=== PATIENT | female | born 1960 | race Caucasian/White ===

== ENCOUNTER → 2017-08-23 10:05 | Outpatient (CLI) | payer MEDICAID, SELFPAY ==
[2017-08-23 10:20] LABS: Lipase 988 U/L (73-393)
== END ==
PROVIDERS: Family Provider Internal Medicine; PCP Internal Medicine; Visit Provider Internal Medicine Hematology & Oncology
DX: C34.90 Malignant neoplasm of unspecified part of unspecified bronchus or lung (principal)
CPT/HCPCS: 83690

== ENCOUNTER → 2017-09-09 16:09 | Outpatient (CLI) | payer MEDICAID, SELFPAY ==
[2017-09-09 16:26] LABS: Lipase 300 U/L (73-393)
== END ==
PROVIDERS: Visit Provider Internal Medicine Hematology & Oncology
DX: C34.90 Malignant neoplasm of unspecified part of unspecified bronchus or lung (principal)
CPT/HCPCS: 83690

== ENCOUNTER → 2017-09-13 10:42 | Outpatient (CLI) | payer MEDICAID, SELFPAY ==
[2017-09-13 11:03] LABS: Lipase 591 U/L (73-393)
== END ==
PROVIDERS: Family Provider Internal Medicine; Visit Provider Internal Medicine Hematology & Oncology
DX: C34.90 Malignant neoplasm of unspecified part of unspecified bronchus or lung (principal)
CPT/HCPCS: 83690

== ENCOUNTER → 2017-10-04 10:37 | Outpatient (CLI) | payer MEDICAID, SELFPAY ==
[2017-10-04 11:06] LABS: Lipase 183 U/L (73-393)
== END ==
PROVIDERS: Family Provider Internal Medicine; PCP Internal Medicine; Visit Provider Internal Medicine Hematology & Oncology
DX: C34.90 Malignant neoplasm of unspecified part of unspecified bronchus or lung (principal)
CPT/HCPCS: 83690

== ENCOUNTER → 2017-10-14 07:53 | Outpatient (CLI) | payer MEDICAID, SELFPAY ==
[2017-10-14 08:36] VITALS: BMI 29.5
[2017-10-14 09:48] VITALS: BP 139/87; PULSE 97; RESP 18; TEMP 36.9; O2SAT 97
[2017-10-14] MEDS: Acetaminophen 325 MG Tablet 650 MG PO (09:51)
[2017-10-14 10:15] VITALS: BP 126/74; PULSE 84; RESP 16; TEMP 36.7; O2SAT 100
[2017-10-14 11:15] VITALS: BP 124/77; PULSE 78; TEMP 36.6
[2017-10-14 11:50] VITALS: BP 120/67; PULSE 78; RESP 16; TEMP 36.6; O2SAT 98
== END ==
PROVIDERS: Family Provider Internal Medicine; PCP Internal Medicine; Visit Provider Internal Medicine Hematology & Oncology
DX: Z51.89 Encounter for other specified aftercare (principal); C56.9 Malignant neoplasm of unspecified ovary; D64.81 Anemia due to antineoplastic chemotherapy
CPT/HCPCS: 36430; 86850; 86900; 86920; 86922; J7040; P9016; A4216

== ENCOUNTER → 2017-10-28 09:40 | Outpatient (CLI) | payer MEDICAID, SELFPAY ==
[2017-10-28 10:00] LABS: Lipase 140 U/L (73-393)
== END ==
PROVIDERS: Family Provider Internal Medicine; PCP Internal Medicine; Visit Provider Internal Medicine Hematology & Oncology
DX: C34.90 Malignant neoplasm of unspecified part of unspecified bronchus or lung (principal)
CPT/HCPCS: 83690

== ENCOUNTER 2017-12-23 13:26 | Inpatient (IN) | payer MEDICAID, SELFPAY ==
[2017-12-23] VITALS (7 sets, daily range): BP systolic 103–117; BP diastolic 65–76; PULSE 84–116; RESP 16–26; TEMP 36.9–37.4; O2SAT 95–99; BMI 28.9; BMI 27.7
--- NOTE | 2017-12-23 13:47 | CT_ITS ---
STUDY: CTA CHEST REASON FOR EXAM: Female, 57 years old. Trauma, lung CA with metastases. RADIATION DOSAGE (If Supplied By Facility): CTDIvol = ( 15.45 ) mGy, DLP = ( 589.54 ) mGycm TECHNIQUE: The examination was performed with the intravenous administration of 75CC ml of Isovue 370 contrast material. Post-processing of the angiographic images was performed, with multiplanar reformation and 3D reconstruction. Individualized dose optimization techniques were used for this CT. COMPARISON: 03/11/2017. FINDINGS: The heart is normal. There is a small pericardial effusion noted anteriorly and to the right. The aorta is normal in caliber, with no aneurysm or dissection. Moderate to marked mediastinal adenopathy appears stable to mildly decreased. Subcarinal and right hilar mass measuring approximately 4 x 4 cm shows no significant change. There is postobstructive atelectasis in the right middle lobe. Underlying postobstructive pneumonia is not excluded. Pulmonary arterial opacification is suboptimal for evaluation of PE. However, emboli are demonstrated in the 3rd-4th order arteries in the lower lobes bilaterally. Limited emboli are noted in 3-4th order arteries in the right middle and left upper lobes. Findings are new compared to the prior study. There is no pleural effusion. Innumerable low-attenuation lesions are noted in the liver, consistent with diffuse metastases. There is significant interval increase compared to the prior study. The right adrenal gland is enlarged, partially imaged, and suspicious for metastasis. Comparison to the prior study is limited due to partial imaging on today's examination. Small left adrenal nodules are nonspecific. There is no osseous abnormality. No evidence of destructive bone changes. CT/CTA Chest W/WO Contrast IMPRESSION: 1. Moderately extensive pulmonary emboli bilaterally. 2. Right hilar and mediastinal mass without significant change. 3. Mild interval decrease in mediastinal adenopathy. 4. Diffuse hepatic metastatic disease. 5. Right middle lobe postobstructive atelectasis. Postobstructive pneumonia is less likely but not excluded. 6. Right adrenal mass, possible metastasis. N.B. : The above information has been verbally conveyed by Lizett Mcneill MD to Alejandro Austin MD, AA, on 12/23/2017 17:05:12 (ET). Electronically Signed: Lizett Mcneill MD at 17:01 EDT Tel , Service support ,
--- NOTE | 2017-12-23 13:47 | CT_ITS ---
STUDY: CT BRAIN WITHOUT CONTRAST REASON FOR EXAM: Female, 57 years old. Trauma. History of metastatic lung cancer. RADIATION DOSAGE (If Supplied By Facility): CTDIvol = ( 44.99 ) mGy, DLP = ( 779.24 ) mGycm TECHNIQUE: Transaxial CT imaging of the brain was performed without administration of intravenous contrast material. Individualized dose optimization techniques were used for this CT. COMPARISON: None. FINDINGS: Normal soft tissue structures. Normal calvarium. Normal size ventricles and extra-axial spaces for the patient's age. Multiple areas of white matter edema suggestive of a metastasis are seen. An area of edema is seen in the right posterior parietal occipital lobe as well as in the right occipital lobe and left temporal parietal lobes. Decreased attenuation is also seen in the frontal lobes bilaterally adjacent to the frontal horns. Normal basal ganglia and thalami. Normal brainstem. Normal cerebellum. There is no intracranial hemorrhage. There are no findings of an acute ischemic infarction. Normal visualized paranasal sinuses. CT/Brain/Head without Contrast IMPRESSION: Findings including the bilateral cerebral metastasis with white matter edema and minimal mass effect. There is no evidence of midline shift. Electronically Signed: Amol Sparrow MD at 15:54 EDT Tel [phone], Service support ,
--- NOTE | 2017-12-23 13:47 | EKG12_ITS ---
Test Reason : CHEST OTHER Blood Pressure : / mmHG Vent. Rate : 111 BPM Atrial Rate : 111 BPM P-R Int : 130 ms QRS Dur : 086 ms QT Int : 312 ms P-R-T Axes : 066 063 045 degrees QTc Int : 424 ms Sinus tachycardia Low voltage QRS (LIMB LEADS) Confirmed by LETTY CURTIS, DEISI ([id number]), story editor MONIKA SAGE ([id number]) on 12/25/2017 1:28:27 PM Referred By: JAIRO Confirmed By:DEISI SAENZ MD
--- NOTE | 2017-12-23 13:52 | ED.VISSUMM ---
- ER Visit Summary Date of Service: 12/23/17 Chief Complaint: Chest pain History of Present Illness: The patient is a 57 F with a history of lung cancer status post chemotherapy. She was supposed to have an MRI of her brain and CAT scan of her chest today as an outpatient. The patient noticed that she seemed unbalanced. She fell earlier today and hit her head. She had multiple falls over the past month. The patient also reports chest pain, cough, sputum, and shortness of breath. No history of DVT or PE. She denies blood thinner use. Denies fevers. Denies GI symptoms or rash. Physical Examination: Afebrile and vital signs unremarkable except for heart rate of 115 and respiratory rate of 25. The patient is 98% on room air. She has an occasional dry cough but is otherwise sitting comfortably. Alert and oriented. Head and neck atraumatic. Heart tachycardic but regular. Lungs show wheezing in all hooper. Abdomen soft and nontender. Skin slightly pale but otherwise normal. Cranial nerves grossly intact. Good strength and sensation. Normal speech and coordination. Test Results: EKG, CT brain and chest, labs, urine, and cultures pending. Emergency Department Course and Treatment: Patient treated with fluids and a DuoNeb while awaiting results. Treatment Plan: [] Disposition: [] Impression: [] This note was generated with [employer] dictation software. It may contain incorrect words, spelling, and punctuation that were not noted in review of the chart prior to signing ED Disposition - Plan for ED Patient: Chief Complaint: Chest Other Referrals: Yanni Martin MD [Primary Care Provider] -
[2017-12-23] MEDS: Ipratropium/Albuterol Sulfate 3 ML AMPUL.NEB INHALATION ×2 (14:07→20:58)
[2017-12-23] MEDS: 0.9% Normal Saline 1,000 ML 1000 ML IV (14:32)
[2017-12-23 14:37] LABS: Absolute Lymphocyte Count 1.44 X10^3/ul (0.83-4.51); Absolute Neutrophil Count 18.5 X10^3/uL (2.0-7.7); Basophil# 0.02 X10^3/uL; Basophil% 0.1 % (0-1); Eosinophil# 0.01 X10^3/uL; Hemoglobin 10.5 g/dl (12.0-15.0); Lymphocyte # 1.44 X10^3/ul (4.0); Lymphocyte % 6.3 % (19-41); Mean Corp Hgb Conc 32.8 g/gl (32-36); Mean Corpuscular Hgb 32.9 pg (27.0-32.0); Mean Corpuscular Volume 100.3 fL (81-99); Mean Platelet Vol. 9.9 fl (6.2-12.0); Monocyte# 2.76 X10^3/uL; Monocyte% 12.1 % (0-10); Neutrophil # 18.52 X10^3/uL (2.7-7.7); Neutrophil % 81.2 % (47-70); Platelet Count 181 K/mm3 (150-450); RBC Distribution Width CV 14.9 % (11.6-14.6); RBC Distribution Width SD 53.5 fl (35.1-43.9); Red Blood Count 3.19 M/mm3 (4.2-5.4); White Blood Count 22.8 K/mm3 (4.4-11.0)
[2017-12-23 14:41] LABS: POSITIVE DIFFERENTIAL YES
[2017-12-23 14:42] LABS: Differential Indicated SCAN CRITERIA MET; POSITIVE COUNT NO; POSITIVE MORPHOLOGY NO
[2017-12-23 14:47] LABS: International Normalized Ratio 1.4; Prothrombin Time (Protime)PT. 16.7 SECONDS (11.7-14.9)
[2017-12-23 14:48] LABS: Partial Thromboplast Time 31.4 Seconds (24.1-36.2)
[2017-12-23 15:05] LABS: ALB/GLOB Ratio 0.6 RATIO (0.9-2.4); AST(SGOT) 162 U/L (15-37); Alanine Aminotransfer ALT/SGPT 69 U/L (13-56); Albumin, Serum 2.9 g/dL (3.2-5.0); Alkaline Phosphatase 356 U/L (45-117); Anion Gap 13 (5-15); BUN 10 mg/dL (7-18); BUN/Creat Ratio 10.5 RATIO (10-20); Calcium,Total 8.7 mg/dL (8.5-10.1); Chloride 100 mmol/L (98-107); Creatinine, Serum 0.95 mg/dL (0.55-1.02); EST Glomerular Filtration Rate 65 mL/min (>60); Est Glom Filt Rate - Afr Amer 78 mL/min (>60); Estimated Creatinine Clearance 57.78 ml/min; Globulin 4.5 g/dL (2.2-4.2); Glucose 92 mg/dL (74-106); Lipase 1637 U/L (73-393); Potassium 3.8 mmol/L (3.5-5.1); Protein, Total 7.4 g/dL (6.4-8.2); Sodium Level 134 mmol/L (136-145)
[2017-12-23 15:09] LABS: Platelet Estimate A (ADEQ); Red Cell Morphology NORM C+C NORMAL (NORM C&C)
--- NOTE | 2017-12-23 17:53 | HP.PCM_ITS ---
<Guanako Plunkett - Last Filed: 12/23/17 17:45> Problem List (1) Pulmonary embolism Status: Acute (2) Pneumonia Status: Acute (3) Sepsis Status: Acute (4) Iron deficiency anemia Status: Chronic (5) Metastatic cancer Status: Chronic (6) Small cell lung cancer Status: Chronic (7) Tobacco use Status: Chronic History of Present Illness Date of Admission: 12/23/17 Chief Complaint: fall The patient is a 57 year old F with a hx of SCLC with mets to the brain, pancreas, liver, adrenal gland, pt of Dr. Presley on chemo last dose 3 weeks ago, who presents to the ER with c/o fall and hitting her head. She states she has been very weak with difficulty walking, with prior falls at home. Today she states she both became LH and then tripped on a rug leading to a fall. She struck her right forehead. She also notes persistent cough with clear sputum production and BL chest wall chest pain. She struck her right knee and c/o pain there as well. She denies SOB but is on O2 - feels she needs this at home. She has no fever or chills. She has no abdominal pain, nausea, vomiting, or intolerance of PO. In the ER CT brain is negative for new changes, however CTA chest shows PE's and possible post obstructive pna. She was given vanc, aztreonam, and subq lovenox. She continues to smoke and requests nicotine gum. [] Past Medical History Past Medical History (Chronic Problems): Chronic Problems Iron deficiency anemia (Chronic) Small cell lung cancer (Chronic) Tobacco use (Chronic) Obesity (BMI 30.0-34.9) (Chronic) Metastatic cancer (Chronic) Allergies cephalexin Allergy (Verified 12/23/17 13:27) Unknown lidocaine Allergy (Verified 12/23/17 13:27) Rash Penicillins Allergy (Verified 12/23/17 13:27) Rash Home Medications: Ambulatory Orders Medication Instructions Recorded Ferrous Sulfate [Iron] 325 mg PO BID 10/14/17 Metoclopramide HCl 20 mg PO Q6H PRN 10/14/17 Omeprazole 20 mg PO DAILY 10/14/17 Potassium Chloride [K-Tab ER] 20 meq PO DAILY 10/14/17 Albuterol Sulfate [Ventolin Hfa] 2 puff INHALATION Q4H PRN PRN 12/23/17 Megestrol Acetate [Megace Udc] 400 mg PO DAILY 12/23/17 Oxycodone [Oxyir] 10 - 20 mg PO Q6H PRN PRN 12/23/17 Surgical History: noncontributory, - - ?1. Psychiatric History: No pertinent psych hx [employer] History: No pertinent [employer] history Lives: Alone Smoking Status: Current every day smoker Alcohol: None Drugs: None - *Family History Maternal History Items: - - Maternal family history of hypertension, heart disease, of lung disease with history of heavy tobacco use. Paternal History Items: - - Father with diabetes mellitus type 2 history. Sibling History Items: - - Patient notes sister with history of lung cancer with heavy tobacco use and another sister with history of lung cancer as well as brain tumors with history of tobacco use. Review of Systems Constitutional: Reports: Weakness, Fatigue. Denies: Chills, Fever, Weight Change HEENT: Denies: Head Aches, Sinus Congestion, Sinus Drainage Cardiovascular: Reports: Chest Pain, Light Headedness. Denies: Edema, Palpitations, Syncope Respiratory: Reports: Cough, Pleuritic Pain, Sputum production. Denies: Shortness of breath at rest, Shortness of breath upon exertion Gastrointestinal: Denies: Abdominal Pain, Nausea, Vomiting Genitourinary: Denies: Dysuria Musculoskeletal: Denies: Joint Pain, Joint Tenderness Skin: Denies: Rash, Wounds Neurological: Denies: Numbness, Tingling, Focal weakness Psychiatric: Denies: Anxiety, Depression, Homicidal Ideations, Suicidal Ideations Hematologic/ Lymphatic: Denies: Easy Bruising, Easy Bleeding VTE Information - Inpt Only VTE Present on Admission: Yes VTE Mechan Device Prophylaxis: None VTE Pharm Prophylaxis ordered?: Yes Patient Problems: Active and Suspected Problems Pulmonary embolism (Acute) Pneumonia (Acute) Sepsis (Acute) Chest pain (Acute) - Physical Exam General: Alert, Oriented x3, Cooperative HEENT: Atraumatic, PERRLA, EOMI, Normocephalic Neck: Supple, No JVD, Negative Carotid Bruits Lungs: Diminished Cardiovascular: Regular rate, No murmurs Abdomen: Bowel Sounds Present, Soft, Non Tender Extremities: No edema, Capillary Refill Less than 3 Seconds Skin: No rashes, No breakdown Musculoskeletal: No Tenderness to Palpation of Joints or Extremities Neurological: Cranial nerves II-XII grossly intact Psych/Mental Status: Normal Affect, Appropriate Vital Signs Temp Pulse Resp BP Pulse Ox 99.3 F H 114 H 20 H 113/76 97 12/23/17 13:27 12/23/17 14:13 12/23/17 14:13 12/23/17 13:27 12/23/17 13:27 Oxygen Flow Rate (L/min) 2 Oxygen Delivery Method Nasal Cannula Weight: 168 lb 6.931 oz Body Mass Index (BMI) 28.9 Laboratory Tests Past 24 Hrs 12/23/17 12/23/17 12/23/17 14:23 14:23 14:23 WBC 22.8 H RBC 3.19 L Hgb 10.5 L Hct 32.0 L MCV 100.3 H MCH 32.9 H MCHC 32.8 RDW 14.9 H RDW Differential 53.5 H Plt Count 181 MPV 9.9 Immature Gran % (Auto) 0.300 Neut % (Auto) 81.2 H Lymph % (Auto) 6.[address] % (Auto) 12.1 H Eos % (Auto) 0.0 Baso % (Auto) 0.1 Absolute Neuts (auto) 18.5 H Absolute Lymphs (auto) 1.44 Total Counted Not Reportable Differential Comment Diff Path Review May foll Platelet Estimate A RBC Morphology NORM C+C PT 16.7 H INR 1.4 APTT 31.4 Sodium 134 L Potassium 3.8 Chloride 100 Carbon Dioxide 21.0 Anion Gap 13 BUN 10 Creatinine 0.95 Estim Creat Clear Calc 57.78 Est GFR (MDRD) Af Amer 78 Est GFR (MDRD) Non-Af 65 BUN/Creatinine Ratio 10.5 Glucose 92 Calcium 8.7 Total Bilirubin 1.00 AST 162 H ALT 69 H Alkaline Phosphatase 356 H Troponin I < 0.015 Total Protein 7.4 Albumin 2.9 L Globulin 4.5 H Albumin/Globulin Ratio 0.6 L Lipase 1637 H Assessment/Plan All Active Problems Pulmonary embolism (Acute) Pneumonia (Acute) Sepsis (Acute) Chest pain (Acute) Acute pancreatitis (Acute) Ureteral calculus (Acute) Hydronephrosis due to obstruction of ureter (Acute) 1. Acute PE's - 2/2 metastatic cancer, also on megace (hold), and smoker. Continue therapeutic lovenox. Oncology consulted. Obtain echo. Monitor on tele. Trop neg. EKG sinus tachy. 2. Presumed acute sepsis 2/2 postobstructive pna - respiratory symptoms are mild and possibly all 2/2 PE, however CTA does show post obstructive atelectasis vs pna and she does have productive cough, leukocytosis, tachypnea, and tachycardia. Will continue Aztronam and Vanco given her immunocompromised state, postobstructive nature of CT findings, and allergies to abx. Will add usual pna therapy/workup including antigens, cultures, mucinex, PEP/IS. 3. 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 Last chemo 3 weeks ago. Plans to continue next week. Liver enzymes are elavated. T bili normal. 4. Chronic Iron def anemia - continue Iron. 5. Hx pancreatitis - elevated lipase however no abdominal / GI complaints - I do not feel this is acute pancreatitis and will allow her to have regular diet for now. 6. Fall with worsening debility - CT brain neg for acute change. Will obtain XR right knee for c/o pain from fall. Needs PTOT, possible placement. She has been falling more at home. Mets to brain. 7. Nicotine abuse - gum per patient request DVT ppx: therapeutic lovenox for PE DC planning: PTOT, may need placed. This patient was seen by Guanako Plunkett PA-C under the supervision of Doctor Ruddy. <Chanell Fox - Last Filed: 12/23/17 20:45> Problem List (1) Chest pain Status: Acute History of Present Illness The patient is a 57 year old F [] Past Medical History Allergies cephalexin Allergy (Verified 12/23/17 13:27) Unknown lidocaine Allergy (Verified 12/23/17 13:27) Rash Penicillins Allergy (Verified 12/23/17 13:27) Rash - Physical Exam Vital Signs Temp Pulse Resp BP Pulse Ox 99.3 F H 114 H 20 H 113/76 97 12/23/17 13:27 12/23/17 14:13 12/23/17 14:13 12/23/17 13:27 12/23/17 13:27 Oxygen Flow Rate (L/min) 2 Oxygen Delivery Method Nasal Cannula Weight: 168 lb 6.931 oz Body Mass Index (BMI) 28.9 Laboratory Tests Past 24 Hrs 12/23/17 12/23/17 12/23/17 14:23 14:23 14:23 WBC 22.8 H RBC 3.19 L Hgb 10.5 L Hct 32.0 L MCV 100.3 H MCH 32.9 H MCHC 32.8 RDW 14.9 H RDW Differential 53.5 H Plt Count 181 MPV 9.9 Immature Gran % (Auto) 0.300 Neut % (Auto) 81.2 H Lymph % (Auto) 6.[address] [place] % (Auto) 12.1 H Eos % (Auto) 0.0 Baso % (Auto) 0.1 Absolute Neuts (auto) 18.5 H Absolute Lymphs (auto) 1.44 Total Counted Not Reportable Differential Comment Diff Path Review May foll Platelet Estimate A RBC Morphology NORM C+C PT 16.7 H INR 1.4 APTT 31.4 Sodium 134 L Potassium 3.8 Chloride 100 Carbon Dioxide 21.0 Anion Gap 13 BUN 10 Creatinine 0.95 Estim Creat Clear Calc 57.78 Est GFR (MDRD) Af Amer 78 Est GFR (MDRD) Non-Af 65 BUN/Creatinine Ratio 10.5 Glucose 92 Lactic Acid Calcium 8.7 Total Bilirubin 1.00 AST 162 H ALT 69 H Alkaline Phosphatase 356 H Troponin I < 0.015 Total Protein 7.4 Albumin 2.9 L Globulin 4.5 H Albumin/Globulin Ratio 0.6 L Lipase 1637 H 12/23/17 14:25 WBC RBC Hgb Hct MCV MCH MCHC RDW RDW Differential Plt Count MPV Immature Gran % (Auto) Neut % (Auto) Lymph % (Auto) [place] % (Auto) Eos % (Auto) Baso % (Auto) Absolute Neuts (auto) Absolute Lymphs (auto) Total Counted Differential Comment Diff Path Review Platelet Estimate RBC Morphology PT INR APTT Sodium Potassium Chloride Carbon Dioxide Anion Gap BUN Creatinine Estim Creat Clear Calc Est GFR (MDRD) Af Amer Est GFR (MDRD) Non-Af BUN/Creatinine Ratio Glucose Lactic Acid 2.1 H Calcium Total Bilirubin AST ALT Alkaline Phosphatase Troponin I Total Protein Albumin Globulin Albumin/Globulin Ratio Lipase Assessment/Plan Patient seen by Guanako Plunkett PA-C under my supervision Patient seen and examined by me. Patient is a 57-year-old female with small cell lung cancer diagnosed in March of this year and is status post palliative cranial radiation and chemotherapy. She was admitted with a complaint of a fall after she fell earlier today and hit her head. She has had a series of multiple falls. She also complained of chest pain and a cough productive of clear sputum as well as shortness of breath. She was due to have an MRI of her brain and CT of her chest today as outpatient but this was not done on account of her falls. She therefore came into the ED where she was found to be tachycardic and tachypneic. Labs were significant for white cell count of 22.8 and hemoglobin of 10.5 and urinalysis was negative. CT of the brain showed metastatic brain disease with minimal mass-effect, no midline shift and CT of the chest showed bilateral pulmonary embolism involving the bilateral lower lobes, right middle lobe and left upper lobe. She is been admitted to be managed for bilateral PE likely provoked by malignancy. She is also being managed for sepsis source possibly due to postobstructive pneumonia. o/e: Vital Signs Height 5 ft 4 in Weight: 168 lb 6.931 oz Weight in Pounds 168.4 lbs Pulse Ox 97 Temperature 99.3 F Pulse Rate 114 Respiratory Rate 20 Blood Pressure 113/76 General: Alert, Oriented x3, Cooperative HEENT: Atraumatic, PERRLA, EOMI, Normocephalic Neck: Supple, No JVD, Negative Carotid Bruits Lungs: clear to auscultation Cardiovascular: tachycardic, regular rhythm, No murmurs Abdomen: Bowel Sounds Present, Soft, Non Tender Extremities: No edema, Capillary Refill Less than 3 Seconds Skin: No rashes, No breakdown Musculoskeletal: No Tenderness to Palpation of Joints or Extremities Neurological: Cranial nerves II-XII grossly intact Psych/Mental Status: Normal Affect, Appropriate; though she does have brief episodes of confusion Assessment and plan She has been started on therapeutic Lovenox for acute PE. Will continue. Oncology consult placed. Will admit to PCU with telemetry. Patient is tachycardic and tachypneic. Symptoms can be explained by have bilateral PE. However, CT angiogram also showed possible postobstructive pneumonia. In light of her malignancy and immunosuppressed state, she does he is at high risk of infection. She meets SIRS criteria for infection-3/4 (tachypnea, tachycardia and leucocytosis). Was started on IV vancomycin and IV aztreonam; will continue. Blood and urine cultures drawn. Rest of admission as per Dimitrios ARIZMENDI's note. Code status: Patient and her 2 sisters were counseled extensively about different types of CODE STATUS. The counseled about differences between full code, DNR CCA and DNR CC. Patient elects to be full code. Total [id number] time 16 minutes. Code Visit Inpatient E&M: 65068 Init Hosp L3 Procedures: 12127 Advncd Care Plan 30 Min
[2017-12-23] MEDS: Enoxaparin 80 MG/0.8 ML Syringe SC (18:13)
[2017-12-23 18:30] LABS: Lactic Acid 2.1 mmol/L (0.4-2.0)
--- NOTE | 2017-12-23 18:55 | RAD_ITS ---
STUDY: X-RAY - RIGHT KNEE REASON FOR EXAM: Female, 57 years old. Status post fall. TECHNIQUE: view(s) of the knee. COMPARISON: None. FINDINGS: There is no fracture or dislocation. There is no joint effusion. There is moderate narrowing of the lateral compartment and mild lateral spurring consistent with osteoarthrosis. Medial compartment is unremarkable. There is mild irregularity of the anterior femoral articular surface suggesting impaction injury, age indeterminate. RAD/Knee 1 or 2 Views IMPRESSION: 1. Irregularity of the anterior femoral articular surface, possible impaction injury, age indeterminate. 2. Moderate osteoarthrosis of the lateral compartment. Electronically Signed: Lizett Mcneill MD at 22:09 EDT Tel , Service support ,
[2017-12-23] MEDS: 0.9% Normal Saline 1,000 ML 100 ML IV (19:16)
--- NOTE | 2017-12-23 19:30 | PCM.RX.CS ---
Consult Pharmacy has been consulted to manage selected antiobiotic: Vancomycin Type of Consult: New start Suspected Infection: Pneumonia Labs: Sodium 134 mmol/L (136-145) L 12/23/17 14:23 Potassium 3.8 mmol/L (3.5-5.1) 12/23/17 14:23 Chloride 100 mmol/L (98-107) 12/23/17 14:23 Carbon Dioxide 21.0 mmol/L (21.0-32.0) 12/23/17 14:23 Anion Gap 13 (5-15) 12/23/17 14:23 BUN 10 mg/dL (7-18) 12/23/17 14:23 Creatinine 0.95 mg/dL (0.55-1.02) 12/23/17 14:23 Est GFR (MDRD) Af Amer 78 mL/min (>60) 12/23/17 14:23 Est GFR (MDRD) Non-Af 65 mL/min (>60) 12/23/17 14:23 BUN/Creatinine Ratio 10.5 RATIO (10-20) 12/23/17 14:23 Glucose 92 mg/dL (74-106) 12/23/17 14:23 Weight used for dosin lb 8.821 oz Estimated Creatinine Clearance: 57.8 Goal Trough: 15-20 mcg/mL - loading dose of 1250mg given in ED. Pharmacy calculated dose 750mg q12h Pharmacy Plan for Drug Dosing: Pharmacy Service will continue to monitor and adjust dosing as required. Vancomycin 1250mg given in ED. Pharmacy calculated dose 750mg q12h Trough will be obtained before 12/25 8am dose
[2017-12-23] MEDS: guaiFENesin 1,200 MG Tablet 1200 MG PO (21:46)
[2017-12-23] MEDS: 0.9% NaCl Peripheral Flush Adult/Peds IV (21:46)
[2017-12-23 21:59] LABS: Reflex Lactate? Y
[2017-12-23 23:04] LABS: Lactic Acid 2.7 mmol/L (0.4-2.0)
[2017-12-24] VITALS (14 sets, daily range): BP systolic 106–116; BP diastolic 62–74; PULSE 85–108; RESP 16–20; TEMP 36.7–37.3; O2SAT 96–99
[2017-12-24] MEDS: Metoclopramide 10 MG Tablet 20 MG PO (00:29)
[2017-12-24] MEDS: Acetaminophen 325 MG Tablet 650 MG PO (00:39)
[2017-12-24] MEDS: 0.9% Normal Saline 1,000 ML 100 ML IV ×3 (04:20→23:54)
--- NOTE | 2017-12-24 05:55 | ECHOD_ITS ---
Reason For Study: EMBOLI Procedure This was a 2D Doppler, Color Flow transthoracic echocardiogram. The study was technically difficult. PT was uncooperative and argumentative throughout exam; however, agreed to do the test. Exam performed portable in patient room. Left Ventricle Normal size and thickness. The estimated ejection fraction is 65 %. Stage 1 diastolic dysfunction. No regional wall motion abnormalities noted. Right Ventricle Normal size and thickness. Normal systolic function. Atria Normal left atrium. Normal right atrium. Normal atrial septum. Bubble contrast study negative for right to left interatrial shunt. Mitral Valve The mitral valve is structurally normal. No prolapse or stenosis seen. Tricuspid Valve Normal tricuspid valve. Trivial tricuspid valve insufficiency. Right ventricular systolic pressure estimated to be 37 mmHg. Mild pulmonary hypertension. Aortic Valve Normal aortic valve. Trisinus/trileaflet aortic valve. Pulmonic Valve The pulmonic valve is not well visualized. Great Vessels Normal aortic root. Normal arch. Normal inferior vena cava. Inferior vena cava collapse with sniff. Pericardium/Pleural No pericardial effusion. Medication Performed a rapid injection of agitated mix of 9 cc saline and 1cc air to assess for atrial septal defect. MMode/2D Measurements & Calculations LVIDd: 4.0 cm IVSd: 1.0 cm Ao root diam: 3.1 cm LVIDs: 2.6 cm LVPWd: 1.0 cm LA dimension: 3.7 cm RVDd: 3.0 cm FS: 36.8 % LAV(MOD-bp): 33.9 ml LA A4 area: 11.1 cm2 LAV(MOD-bp) Indexed: 19.0 ml/m2 LAV(MOD-sp2): 35.5 ml LAV(MOD-sp4): 26.8 ml Doppler Measurements & Calculations MV E max bhupinder: 94.8 cm/sec Lat Peak E' Bhupinder: 10.3 cm/sec Med Peak E' Bhupinder: 7.9 cm/sec MV A max bhupinder: 77.6 cm/sec E/E' lat: 9.2 E/E' med: 12.0 MV E/A: 1.2 Ao V2 max: 156.4 cm/sec LV V1 max: 117.3 cm/sec PA V2 max: 87.5 cm/sec Ao max P.8 mmHg LV V1 max P.5 mmHg TR max bhupinder: 281.1 cm/sec TR max P.6 mmHg Interpretation Summary The estimated ejection fraction is 65 %. Stage 1 diastolic dysfunction. Bubble contrast study negative for right to left interatrial shunt. Trivial tricuspid valve insufficiency. Right ventricular systolic pressure estimated to be 37 mmHg. Mild pulmonary hypertension. There is no comparison study available. Ordering Physician: Guanako Plunkett Referring Physician: Yanni Martin Performed By: Khadijah Caraballo RDCS, RVT
[2017-12-24] MEDS: Enoxaparin 80 MG/0.8 ML Syringe SC ×2 (06:30→17:02)
[2017-12-24] MEDS: Ipratropium/Albuterol Sulfate 3 ML AMPUL.NEB INHALATION ×3 (07:03→19:04)
[2017-12-24 07:07] LABS: Absolute Lymphocyte Count 1.51 X10^3/ul (0.83-4.51); Absolute Neutrophil Count 12.5 X10^3/uL (2.0-7.7); Basophil# 0.02 X10^3/uL; Basophil% 0.1 % (0-1); Eosinophil# 0.01 X10^3/uL; Eosinophils% 0.1 % (0-5); Hematocrit 28.2 % (37-47); Lymphocyte # 1.51 X10^3/ul (4.0); Lymphocyte % 9.5 % (19-41); Mean Corp Hgb Conc 31.9 g/gl (32-36); Mean Corpuscular Hgb 31.7 pg (27.0-32.0); Mean Corpuscular Volume 99.3 fL (81-99); Mean Platelet Vol. 10.3 fl (6.2-12.0); Monocyte# 1.84 X10^3/uL; Monocyte% 11.6 % (0-10); Neutrophil # 12.46 X10^3/uL (2.7-7.7); Neutrophil % 78.6 % (47-70); Platelet Count 145 K/mm3 (150-450); RBC Distribution Width CV 15.3 % (11.6-14.6); RBC Distribution Width SD 56.2 fl (35.1-43.9); Red Blood Count 2.84 M/mm3 (4.2-5.4); White Blood Count 15.9 K/mm3 (4.4-11.0)
[2017-12-24 07:08] LABS: Differential Indicated SCAN CRITERIA MET; POSITIVE COUNT NO; POSITIVE DIFFERENTIAL YES; POSITIVE MORPHOLOGY NO
[2017-12-24 07:26] LABS: ALB/GLOB Ratio 0.6 RATIO (0.9-2.4); AST(SGOT) 144 U/L (15-37); Alanine Aminotransfer ALT/SGPT 63 U/L (13-56); Albumin, Serum 2.4 g/dL (3.2-5.0); Alkaline Phosphatase 304 U/L (45-117); Anion Gap 13 (5-15); BUN 9 mg/dL (7-18); BUN/Creat Ratio 12.7 RATIO (10-20); Calcium,Total 7.9 mg/dL (8.5-10.1); Chloride 108 mmol/L (98-107); Creatinine, Serum 0.71 mg/dL (0.55-1.02); EST Glomerular Filtration Rate 91 mL/min (>60); Est Glom Filt Rate - Afr Amer 110 mL/min (>60); Estimated Creatinine Clearance 77.31 ml/min; Globulin 3.7 g/dL (2.2-4.2); Glucose 96 mg/dL (74-106); Potassium 3.3 mmol/L (3.5-5.1); Protein, Total 6.1 g/dL (6.4-8.2); Sodium Level 140 mmol/L (136-145)
--- NOTE | 2017-12-24 07:38 | CON.PCM_ITS ---
Problem List (1) Pneumonia Status: Acute Qualifiers: Pneumonia type: due to unspecified organism Laterality: unspecified laterality Lung location: unspecified part of lung Qualified Code(s): J18.9 - Pneumonia, unspecified organism (2) Sepsis Status: Acute (3) Small cell lung cancer Status: Chronic (4) Pulmonary embolism Status: Acute Qualifiers: Pulmonary embolism type: other Chronicity: acute Acute cor pulmonale pres ence: without acute cor pulmonale Qualified Code(s): I26.99 - Other pulmonary embolism without acute cor pulmonale (5) Ataxia Status: Acute Comment: Cerebellar metastases - Consult Date of Consult: 12/24/[address] Fox regarding patient with extensive small cell lung cancer with brain and liver metastasis presented with sepsis and bilateral pulmonary embolism. Final recommendation will be communicated to Dr. Fox and also by electronic medical record. - Reason for Consult Sepsis Ataxia Bilateral pulmonary embolism Extensive small cell lung cancer with liver and brain metastasis History of Present Illness Date of Admission: 12/23/17 Chief Complaint: fall The patient is a 57 year old F with a hx of SCLC with mets to the brain, pancreas, liver, adrenal gland. Patient is receiving palliative chemotherapy with Dr. Presley. Her last dose was 3 weeks ago. She presented to the ER with c/o fall and hitting her head x 1 month. She was diagnosed with brain metastasis in June 2017 completed whole brain radiation therapy. Prior treatment including carboplatin and etoposide through May 2017. Patient was on Topotecan until October 2017 for progression of disease. She started Taxol carboplatin in November 2017. Now completed 2 cycles of chemotherapy. She states she has been very weak with difficulty walking, with prior falls at home. Today she states she both became LH and then tripped on a rug leading to a fall. She struck her right forehead. She also notes persistent cough with clear sputum production and BL chest wall chest pain. She struck her right knee and c/o pain there as well. She denies SOB but is on O2 - feels she needs this at home. She has no fever or chills. She has no abdominal pain, nausea, vomiting, or intolerance of PO. Not been eating much for the last 4 days. In the ER CT brain is negative for new changes except for cerebellar metastasis with no shift or enhancement with edema. Her CTA chest shows PE's and possible post obstructive pneumonia process. She also has progression of disease in her liver. She was given vanc, aztreonam, and subq lovenox. Patient denies chest pain or shortness of breath this morning, she still have a nonproductive cough. She has no fever, but she is weak and has difficulty with balance. Patient denied nausea, vomiting, or headaches. Past Medical History Past Medical History (Chronic Problems): Chronic Problems Iron deficiency anemia (Chronic) Small cell lung cancer (Chronic) Tobacco use (Chronic) Obesity (BMI 30.0-34.9) (Chronic) Metastatic cancer (Chronic) Allergies cephalexin Allergy (Verified 12/23/17 13:27) Unknown lidocaine Allergy (Verified 12/23/17 13:27) Rash Penicillins Allergy (Verified 12/23/17 13:27) Rash Home Medications: Ambulatory Orders Medication Instructions Recorded Ferrous Sulfate [Iron] 325 mg PO BID 10/14/17 Metoclopramide HCl 20 mg PO Q6H PRN 10/14/17 Omeprazole 20 mg PO DAILY 10/14/17 Potassium Chloride [K-Tab ER] 20 meq PO DAILY 10/14/17 Albuterol Sulfate [Ventolin Hfa] 2 puff INHALATION Q4H PRN PRN 12/23/17 Megestrol Acetate [Megace Udc] 400 mg PO DAILY 12/23/17 Oxycodone [Oxyir] 10 - 20 mg PO Q6H PRN PRN 12/23/17 Surgical History: noncontributory, - - ?1. 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 Paternal History Items: - - Father with diabetes mellitus type 2 history. Sibling History Items: - - Patient notes sister with history of lung cancer with heavy tobacco use and another sister with history of lung cancer as well as brain tumors with history of tobacco use. Review of Systems Constitutional: Reports: + Weakness, Fatigue. Denies: Chills, Fever, Weight Change HEENT: Denies: Head Aches, Sinus Congestion, Sinus Drainage Cardiovascular: Reports: Chest Pain, Light Headedness. Denies: Edema, Palpitations, Syncope Respiratory: Reports: Cough, Pleuritic Pain, Sputum production. Denies: Shortness of breath at rest, Shortness of breath upon exertion Gastrointestinal: Denies: Abdominal Pain, Nausea, Vomiting Genitourinary: Denies: Dysuria Musculoskeletal: Denies: Joint Pain, Joint Tenderness Skin: Denies: Rash, Wounds Neurological: Denies: Numbness, Tingling, + generalized weakness + ataxia Psychiatric: Denies: Anxiety, Depression, Homicidal Ideations, Suicidal Ideations Hematologic/ Lymphatic: Denies: Easy Bruising, Easy Bleeding VTE Information - Inpt Only VTE Present on Admission: Yes VTE Mechan Device Prophylaxis: None VTE Pharm Prophylaxis ordered?: Yes Patient Problems: Active and Suspected Problems Pulmonary embolism (Acute) Pneumonia (Acute) Sepsis (Acute) Vital Signs - 24 hr Temp Pulse Pulse Pulse Pulse Resp BP 12/24/17 07:03 91 16 12/24/17 03:47 98.2 F 95 18 111/74 12/24/17 03:00 95 12/23/17 23:00 107 H 12/23/17 21:47 98.9 F 105 H 16 114/73 12/23/17 21:00 84 18 12/23/17 19:33 110 H 12/23/17 18:45 98.4 F 109 H 109 H 114 H 116 H 18 108/65 12/23/17 14:13 114 H 20 H 12/23/17 13:27 99.3 F H 114 H 26 H 113/76 BP BP BP Pulse Ox 12/24/17 07:03 97 12/24/17 03:47 97 12/24/17 03:00 12/23/17 23:00 12/23/17 21:47 99 12/23/17 21:00 95 12/23/17 19:33 12/23/17 18:45 108/65 117/73 103/72 96 12/23/17 14:13 12/23/17 13:27 97 - Physical Exam General: Alert, Oriented x3, Cooperative HEENT: Atraumatic, PERRLA, EOMI, Normocephalic Neck: Supple, No JVD, Negative Carotid Bruits Lungs: Diminished, no wheezing Cardiovascular: Regular rate, No murmurs Abdomen: Bowel Sounds Present, Soft, Non Tender Extremities: No edema, Capillary Refill Less than 3 Seconds Skin: No rashes, No breakdown Musculoskeletal: No Tenderness to Palpation of Joints or Extremities Neurological: Cranial nerves II-XII grossly intact; + ataxia Psych/Mental Status: Normal Affect, Appropriate Oxygen Flow Rate (L/min) 2 Oxygen Delivery Method Nasal Cannula Weight: 168 lb 6.931 oz Body Mass Index (BMI) 28.9 Labs (Last 48 Hours) 12/23/17 12/23/17 12/23/17 14:23 14:23 14:23 WBC 22.8 H RBC 3.19 L Hgb 10.5 L Hct 32.0 L MCV 100.3 H MCH 32.9 H MCHC 32.8 RDW 14.9 H RDW Differential 53.5 H Plt Count 181 MPV 9.9 Immature Gran % (Auto) 0.300 Neut % (Auto) 81.2 H Lymph % (Auto) 6.3 L [place] % (Auto) 12.1 H Eos % (Auto) 0.0 Baso % (Auto) 0.1 Absolute Neuts (auto) 18.5 H Absolute Lymphs (auto) 1.44 Total Counted Not Reportable Differential Comment Diff Path Review May foll Platelet Estimate A RBC Morphology NORM C+C PT 16.7 H INR 1.4 APTT 31.4 Sodium 134 L Potassium 3.8 Chloride 100 Carbon Dioxide 21.0 Anion Gap 13 BUN 10 Creatinine 0.95 Estim Creat Clear Calc 57.78 Est GFR (MDRD) Af Amer 78 Est GFR (MDRD) Non-Af 65 BUN/Creatinine Ratio 10.5 Glucose 92 Lactic Acid Calcium 8.7 Total Bilirubin 1.00 AST 162 H ALT 69 H Alkaline Phosphatase 356 H Troponin I < 0.015 Total Protein 7.4 Albumin 2.9 L Globulin 4.5 H Albumin/Globulin Ratio 0.6 L Lipase 1637 H 12/23/17 12/23/17 12/24/17 14:25 22:22 06:30 WBC 15.9 H RBC 2.84 L Hgb 9.0 L Hct 28.2 L MCV 99.3 H MCH 31.7 MCHC 31.9 L RDW 15.3 H RDW Differential 56.2 H Plt Count 145 L MPV 10.3 Immature Gran % (Auto) 0.100 Neut % (Auto) 78.6 H Lymph % (Auto) 9.5 L [place] % (Auto) 11.6 H Eos % (Auto) 0.1 Baso % (Auto) 0.1 Absolute Neuts (auto) 12.5 H Absolute Lymphs (auto) 1.51 Total Counted Not Reportable Differential Comment Diff Path Review May foll Platelet Estimate RBC Morphology PT INR APTT Sodium Potassium Chloride Carbon Dioxide Anion Gap BUN Creatinine Estim Creat Clear Calc Est GFR (MDRD) Af Amer Est GFR (MDRD) Non-Af BUN/Creatinine Ratio Glucose Lactic Acid 2.1 H 2.7 H Calcium Total Bilirubin AST ALT Alkaline Phosphatase Troponin I Total Protein Albumin Globulin Albumin/Globulin Ratio Lipase 12/24/17 06:30 WBC RBC Hgb Hct MCV MCH MCHC RDW RDW Differential Plt Count MPV Immature Gran % (Auto) Neut % (Auto) Lymph % (Auto) [place] % (Auto) Eos % (Auto) Baso % (Auto) Absolute Neuts (auto) Absolute Lymphs (auto) Total Counted Differential Comment Diff Path Review Platelet Estimate RBC Morphology PT INR APTT Sodium 140 Potassium 3.3 L Chloride 108 H Carbon Dioxide 19.0 L Anion Gap 13 BUN 9 Creatinine 0.71 Estim Creat Clear Calc 77.31 Est GFR (MDRD) Af Amer 110 Est GFR (MDRD) Non-Af 91 BUN/Creatinine Ratio 12.7 Glucose 96 Lactic Acid Calcium 7.9 L Total Bilirubin 0.80 AST 144 H ALT 63 H Alkaline Phosphatase 304 H Troponin I Total Protein 6.1 L Albumin 2.4 L Globulin 3.7 Albumin/Globulin Ratio 0.6 L Lipase Assessment/Plan All Active Problems 57-year-old lady with metastatic small cell lung cancer refractory to chemotherapy treatment. She now present with sepsis/postobstructive pneumonia with bilateral pulmonary embolism as well as liver metastases, pancreatitis and ataxia possible secondary to progression disease versus generalized weakness. 1) pneumonia/sepsis; agree with broad-spectrum antibiotic pending blood and sputum cultures -Pneumococcal antigens and legionnaire antigen urine test -Sputum culture 2) acute pulmonary embolus secondary to metastatic lung cancer -Continue Lovenox injection 1mg/kg sq 12-hour 3) chronic anemia secondary to iron deficiency and anemia of chronic disease -Continue observation since patient is asymptomatic. 4) history of pancreatitis, elevated lipase but patient asymptomatic -Manage symptomatically. 5) frequent fall and worsening debility-due to cancer progression, dehydration, malnutrition, paraneoplastic vs progression of cerebellar metastasis -PT / OT consult 6) progression of metastatic small cell lung cancer with brain and liver metastasis on palliative chemotherapy -Discontinue chemotherapy -Family conference to discuss hospice referral (possibly tomorrow). cc: Dr. Chanell Fox, Dr. Rajeev Presley, Dr. Yanni Martin
[2017-12-24] MEDS: Ferrous Sulfate 325 MG Tablet PO ×2 (09:09→16:55)
[2017-12-24] MEDS: Pantoprazole Sodium 20 MG Tablet PO (09:10)
[2017-12-24] MEDS: guaiFENesin 1,200 MG Tablet 1200 MG PO ×2 (09:10→21:26)
--- NOTE | 2017-12-24 13:17 | CASEMGMT ---
Patient does not have insurance. Patient [employer] Services met with patient and indicated patient is over for Medicaid and HCAP. SW met with patient, introduced self and role at [facility]. SW told patient Medicaid for nursing homes has a higher income guideline and she would likely qualify. She said she would talk to her sister melodie and they can fill out the Medicaid application. ALANNA told her SW will check back with her tomorrow. If patient decides she needs to go to a prison she would have to complete a Medicaid application for prison. ALANNA would then have to fax this to [employer] [facility] [employer] [facility] and obtain a pending number. ALANNA would have to find a facility that will accept patient on pending Medicaid. Once the pending number is received and SW has an accepting facility SW will have to submit paperwork to [facility] for a level of care. Tamie GARIBAY MSW
[2017-12-24 13:31] LABS: M R Staph aureus DNA By PCR Negative (Negative); Probe Check PASS; Specimen Processing Control PASS
--- NOTE | 2017-12-24 14:22 | PN_ITS ---
<Guanako Plunkett - Last Filed: 12/24/17 14:17> Patient Problems: Active and Suspected Problems Pulmonary embolism (Acute) Pneumonia (Acute) Sepsis (Acute) Chest pain (Acute) Ataxia (Acute) Cerebellar metastases Subjective: Overall improved. No shortness of breath, chest pain, pleurisy, fevers or chills. Continues to have intermittent productive cough. - Physical Exam General: Alert, Oriented x3, Cooperative HEENT: Atraumatic, PERRLA, EOMI, Normocephalic Neck: Supple, No JVD, Negative Carotid Bruits Lungs: Clear to auscultation, Normal air movement Cardiovascular: Regular rate, No murmurs Abdomen: Bowel Sounds Present, Soft, Non Tender Extremities: No edema, Capillary Refill Less than 3 Seconds Skin: No rashes, No breakdown Musculoskeletal: No Tenderness to Palpation of Joints or Extremities Neurological: Cranial nerves II-XII grossly intact Psych/Mental Status: Normal Affect, Appropriate, Alert and oriented to time, place, person, mood and affect Vital Signs Temp Pulse Resp BP Pulse Ox 99.2 F H 89 20 H 106/66 98 12/24/17 09:14 12/24/17 12:45 12/24/17 12:45 12/24/17 09:14 12/24/17 09:14 Oxygen Flow Rate (L/min) 2 Oxygen Delivery Method Nasal Cannula Weight: 161 lb 7.994 oz Body Mass Index (BMI) 27.7 Intake and Output for Last 24 Hours 12/22/17 12/23/17 12/24/17 23:59 23:59 23:59 Intake Total 3714 / 3714 Balance 3714 / 3714 Laboratory Tests Past 24 Hrs 12/23/17 12/23/17 12/23/17 14:23 14:23 14:23 WBC 22.8 H RBC 3.19 L Hgb 10.5 L Hct 32.0 L MCV 100.3 H MCH 32.9 H MCHC 32.8 RDW 14.9 H RDW Differential 53.5 H Plt Count 181 MPV 9.9 Immature Gran % (Auto) 0.300 Neut % (Auto) 81.2 H Lymph % (Auto) 6.3 L Emanuel % (Auto) 12.1 H Eos % (Auto) 0.0 Baso % (Auto) 0.1 Absolute Neuts (auto) 18.5 H Absolute Lymphs (auto) 1.44 Total Counted Not Reportable Differential Comment Diff Path Review May foll Platelet Estimate A RBC Morphology NORM C+C PT 16.7 H INR 1.4 APTT 31.4 Sodium 134 L Potassium 3.8 Chloride 100 Carbon Dioxide 21.0 Anion Gap 13 BUN 10 Creatinine 0.95 Estim Creat Clear Calc 57.78 Est GFR (MDRD) Af Amer 78 Est GFR (MDRD) Non-Af 65 BUN/Creatinine Ratio 10.5 Glucose 92 Lactic Acid Calcium 8.7 Total Bilirubin 1.00 AST 162 H ALT 69 H Alkaline Phosphatase 356 H Troponin I < 0.015 Total Protein 7.4 Albumin 2.9 L Globulin 4.5 H Albumin/Globulin Ratio 0.6 L Lipase 1637 H MRSA (PCR) 12/23/17 12/23/17 12/24/17 14:25 22:22 06:30 WBC 15.9 H RBC 2.84 L Hgb 9.0 L Hct 28.2 L MCV 99.3 H MCH 31.7 MCHC 31.9 L RDW 15.3 H RDW Differential 56.2 H Plt Count 145 L MPV 10.3 Immature Gran % (Auto) 0.100 Neut % (Auto) 78.6 H Lymph % (Auto) 9.5 L Emanuel % (Auto) 11.6 H Eos % (Auto) 0.1 Baso % (Auto) 0.1 Absolute Neuts (auto) 12.5 H Absolute Lymphs (auto) 1.51 Total Counted Not Reportable Differential Comment Diff Path Review May foll Platelet Estimate RBC Morphology PT INR APTT Sodium Potassium Chloride Carbon Dioxide Anion Gap BUN Creatinine Estim Creat Clear Calc Est GFR (MDRD) Af Amer Est GFR (MDRD) Non-Af BUN/Creatinine Ratio Glucose Lactic Acid 2.1 H 2.7 H Calcium Total Bilirubin AST ALT Alkaline Phosphatase Troponin I Total Protein Albumin Globulin Albumin/Globulin Ratio Lipase MRSA (PCR) 12/24/17 12/24/17 06:30 12:00 WBC RBC Hgb Hct MCV MCH MCHC RDW RDW Differential Plt Count MPV Immature Gran % (Auto) Neut % (Auto) Lymph % (Auto) Emanuel % (Auto) Eos % (Auto) Baso % (Auto) Absolute Neuts (auto) Absolute Lymphs (auto) Total Counted Differential Comment Diff Path Review Platelet Estimate RBC Morphology PT INR APTT Sodium 140 Potassium 3.3 L Chloride 108 H Carbon Dioxide 19.0 L Anion Gap 13 BUN 9 Creatinine 0.71 Estim Creat Clear Calc 77.31 Est GFR (MDRD) Af Amer 110 Est GFR (MDRD) Non-Af 91 BUN/Creatinine Ratio 12.7 Glucose 96 Lactic Acid Calcium 7.9 L Total Bilirubin 0.80 AST 144 H ALT 63 H Alkaline Phosphatase 304 H Troponin I Total Protein 6.1 L Albumin 2.4 L Globulin 3.7 Albumin/Globulin Ratio 0.6 L Lipase MRSA (PCR) Negative Medical Necessity - Tobacco Use Smoking Status: Current every day smoker Tobacco Use: Cigarettes Assessment/Plan All Active Problems Pulmonary embolism (Acute) Pneumonia (Acute) Sepsis (Acute) Chest pain (Acute) Ataxia (Acute) Acute pancreatitis (Acute) Ureteral calculus (Acute) Hydronephrosis due to obstruction of ureter (Acute) 1. Acute PE's - 2/2 metastatic cancer, also on megace (hold), and smoker. Continue therapeutic lovenox. Oncology consulted. echo Echo demonstrates EF of 65% with stage I diastolic dysfunction, RVSP of 37 mmHg, mild pulmonary hypertension. Trop neg. 2. Presumed acute severe sepsis 2/2 postobstructive pna - respiratory symptoms are mild and possibly all 2/2 PE, however CTA does show post obstructive atelectasis vs pna. Severe sepsis criteria met on admission with leukocytosis, tachypnea, tachycardia, lactic acidosis. Vanc and aztreonam stopped and changed to cefepime. MRSA screen is negative. Leukocytosis is improved, she remains afebrile. Blood cultures, sputum cultures, urine antigens pending. 3. 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 Last chemo 3 weeks ago. Plans to continue next week. Liver enzymes are elavated. T bili normal. Oncology to discuss hospice with patient. 4. Chronic Iron def anemia - continue Iron. 5. Hx pancreatitis - elevated lipase however no abdominal / GI complaints - I do not feel this is acute pancreatitis and will allow her to have regular diet for now. 6. Fall with worsening debility - CT brain neg for acute change. X-ray of the knee does not show a fracture. 7. Nicotine abuse - gum per patient request. She continues to smoke at least one pack a day. DVT ppx: therapeutic lovenox for PE DC planning: Patient is unsafe to return home as she lives by herself and has been falling more frequently with metastases to the brain, and has been hitting her head lately. She desires to go home, however there will be hospice discussion occurring tomorrow. Further planning will depend on the outcome of that discussion. This patient was seen by Guanako Plunkett PA-C under the supervision of Doctor Leon. <Mainor Quintero - Last Filed: 12/24/17 17:09> Subjective: The patient was admitted yesterday night. Mild tachycardia, heart rate in 100s. Pulse ox 96% on 2 L of oxygen. Patient has history of metastatic small cell lung cancer with metastases to brain, pancreas, liver and adrenal gland. Patient on palliative chemotherapy by Dr. Presley, last chemo about 3 weeks ago. Patient was admitted with generalized weakness, difficulty walking and recurrent fall at home. Patient fell down and states hitting her head. She has persistent cough clear sputum and bilateral pleuritic chest wall pain. CTA chest was consistent with PE, postobstructive pneumonia. Was started on IV vancomycin and aztreonam and Lovenox 1 mg/kg body weight subcu. IV antibiotic was changed to cefepime and vancomycin. Patient does not have significant allergy with cephalosporins. - Physical Exam General: Alert, Oriented x3, Cooperative HEENT: Atraumatic, PERRLA, EOMI, Normocephalic Neck: Supple, No JVD, Negative Carotid Bruits Lungs: Diminished, Rhonchi, - - Tonic cough Cardiovascular: Regular rate, Regular Rhythm, Normal S1, Normal S2, No murmurs Abdomen: Bowel Sounds Present, Soft, Non Tender, Non-Distended Extremities: No edema, Capillary Refill Less than 3 Seconds Skin: No rashes, No breakdown Musculoskeletal: No Tenderness to Palpation of Joints or Extremities, Arthritic Changes, Muscle Wasting Neurological: Cranial nerves II-XII grossly intact, Neuro grossly intact, Unsteady Gait Psych/Mental Status: Normal Affect, Appropriate Vital Signs Temp Pulse Resp BP Pulse Ox 98.6 F 108 H 18 106/70 96 12/24/17 15:16 12/24/17 15:16 12/24/17 15:16 12/24/17 15:16 12/24/17 15:16 Oxygen Flow Rate (L/min) 2 Oxygen Delivery Method Room Air Weight: 161 lb 7.994 oz Body Mass Index (BMI) 27.7 Intake and Output for Last 24 Hours 12/22/17 12/23/17 12/24/17 23:59 23:59 23:59 Intake Total 3714 / 3714 Balance 3714 / 3714 Laboratory Tests Past 24 Hrs 12/23/17 12/23/17 12/24/17 14:25 22:22 06:30 WBC 15.9 H RBC 2.84 L Hgb 9.0 L Hct 28.2 L MCV 99.3 H MCH 31.7 MCHC 31.9 L RDW 15.3 H RDW Differential 56.2 H Plt Count 145 L MPV 10.3 Immature Gran % (Auto) 0.100 Neut % (Auto) 78.6 H Lymph % (Auto) 9.5 L Emanuel % (Auto) 11.6 H Eos % (Auto) 0.1 Baso % (Auto) 0.1 Absolute Neuts (auto) 12.5 H Absolute Lymphs (auto) 1.51 Total Counted Not Reportable Diff Path Review May foll Sodium Potassium Chloride Carbon Dioxide Anion Gap BUN Creatinine Estim Creat Clear Calc Est GFR (MDRD) Af Amer Est GFR (MDRD) Non-Af BUN/Creatinine Ratio Glucose Lactic Acid 2.1 H 2.7 H Calcium Total Bilirubin AST ALT Alkaline Phosphatase Total Protein Albumin Globulin Albumin/Globulin Ratio MRSA (PCR) 12/24/17 12/24/17 06:30 12:00 WBC RBC Hgb Hct MCV MCH MCHC RDW RDW Differential Plt Count MPV Immature Gran % (Auto) Neut % (Auto) Lymph % (Auto) Emanuel % (Auto) Eos % (Auto) Baso % (Auto) Absolute Neuts (auto) Absolute Lymphs (auto) Total Counted Diff Path Review Sodium 140 Potassium 3.3 L Chloride 108 H Carbon Dioxide 19.0 L Anion Gap 13 BUN 9 Creatinine 0.71 Estim Creat Clear Calc 77.31 Est GFR (MDRD) Af Amer 110 Est GFR (MDRD) Non-Af 91 BUN/Creatinine Ratio 12.7 Glucose 96 Lactic Acid Calcium 7.9 L Total Bilirubin 0.80 AST 144 H ALT 63 H Alkaline Phosphatase 304 H Total Protein 6.1 L Albumin 2.4 L Globulin 3.7 Albumin/Globulin Ratio 0.6 L MRSA (PCR) Negative Assessment/Plan This patient was seen in conjunction with Guanako KAUFMAN. I have independently interviewed and examined the patient and reviewed pertinent history, examination findings, laboratory and plan of management. I have reviewed the note and agree with the documented findings with the few additional points. In brief, patient is a 57-year-old female with history of 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 Presley, last chemo about 3 weeks ago is being admitted for generalized weakness, difficulty walking and recurrent fall at home. Patient fell down and states hit her head. She has persistent cough clear sputum and bilateral pleuritic chest wall pain and further assessment and evaluation was consistent with moderately extensive bilateral acute PE secondary to metastatic cancer, right middle lobe postobstructive pneumonia/atelectasis and right hilar, mediastinal mass, adrenal metastasis and diffuse liver metastasis. CT images reviewed. The patient was started on IV vancomycin and aztreonam and Lovenox 1 mg/kg body weight subcut. IV antibiotic was changed to cefepime and vancomycin. Patient does not have significant allergy with cephalosporins. I have discussed my assessment with Guanako KAUFMAN and orders have been reviewed. Code Visit Inpatient E&M: 42465 Subs Hosp L3
[2017-12-24] MEDS: oxyCODONE 5 MG Tablet PO (21:25)
[2017-12-25] VITALS (15 sets, daily range): BP systolic 112–122; BP diastolic 76–90; PULSE 89–112; RESP 16–20; TEMP 36.5–36.8; O2SAT 95–99
[2017-12-25] MEDS: Enoxaparin 80 MG/0.8 ML Syringe SC ×2 (06:28→16:59)
[2017-12-25 06:33] LABS: Absolute Lymphocyte Count 1.27 X10^3/ul (0.83-4.51); Basophil# 0.01 X10^3/uL; Basophil% 0.1 % (0-1); Eosinophil# 0.05 X10^3/uL; Eosinophils% 0.5 % (0-5); Hematocrit 26.3 % (37-47); Hemoglobin 8.1 g/dl (12.0-15.0); Lymphocyte # 1.27 X10^3/ul (4.0); Lymphocyte % 12.3 % (19-41); Mean Corp Hgb Conc 30.8 g/gl (32-36); Mean Platelet Vol. 10.5 fl (6.2-12.0); Monocyte# 1.03 X10^3/uL; Neutrophil # 7.96 X10^3/uL (2.7-7.7); Neutrophil % 76.8 % (47-70); Platelet Count 160 K/mm3 (150-450); RBC Distribution Width CV 15.3 % (11.6-14.6); RBC Distribution Width SD 56.3 fl (35.1-43.9); Red Blood Count 2.53 M/mm3 (4.2-5.4); White Blood Count 10.4 K/mm3 (4.4-11.0)
[2017-12-25 06:50] LABS: Bacteria 0 SEEN /hpf (None Seen); Mucous, Urine 0 SEEN /hpf (<or=2+); Red Blood Cells-Urine 0 SEEN /hpf (0-5)
[2017-12-25 06:51] LABS: Color, Urine Yellow (Yellow); Glucose, Dipstick Normal (Normal); Ketone-Dipstick 5 mg/dl (Negative); Leukocyte Esterase-Dipstick 100 /ul (Negative); Nitrite-Dipstick Negative (Negative); Occult Blood-Urine 10 /ul (Negative); Protein-Dipstick 30 mg/dl (Negative); Specific Gravity, Urine 1.015 (1.002-1.030); Urine Clarity Clear (Clear); Urine Urobilinogen Normal (Normal)
[2017-12-25 06:53] LABS: Anion Gap 9 (5-15); BUN 7 mg/dL (7-18); BUN/Creat Ratio 10.2 RATIO (10-20); Calcium,Total 7.3 mg/dL (8.5-10.1); Chloride 115 mmol/L (98-107); Creatinine, Serum 0.69 mg/dL (0.55-1.02); EST Glomerular Filtration Rate 94 mL/min (>60); Est Glom Filt Rate - Afr Amer 114 mL/min (>60); Estimated Creatinine Clearance 79.55 ml/min; Glucose 83 mg/dL (74-106); Potassium 3.4 mmol/L (3.5-5.1); Sodium Level 143 mmol/L (136-145)
[2017-12-25 06:54] LABS: Urine Bilirubin Dipstick 1 mg/dL (Negative)
[2017-12-25 07:00] LABS: Squamous Epithelial Cells - UA 0-5 SEEN /hpf (5-10); White Blood Cells 0-5 SEEN /hpf (0-5)
[2017-12-25 07:00] LABS: POSITIVE COUNT NO; POSITIVE DIFFERENTIAL NO; POSITIVE MORPHOLOGY NO
[2017-12-25 07:01] LABS: Hyaline Cast 0-5 SEEN /lpf (0-5)
[2017-12-25] MEDS: Ipratropium/Albuterol Sulfate 3 ML AMPUL.NEB INHALATION ×3 (07:01→20:00)
[2017-12-25] MEDS: guaiFENesin 1,200 MG Tablet 1200 MG PO ×2 (07:47→22:21)
[2017-12-25] MEDS: Pantoprazole Sodium 20 MG Tablet PO (07:47)
[2017-12-25] MEDS: Ferrous Sulfate 325 MG Tablet PO ×2 (07:47→16:57)
--- NOTE | 2017-12-25 08:00 | PN_ITS ---
Progress Note Oncology progress note: Patient has no complaint this morning. Minimal chest pain & non productive cough. Denies shortness of breath. Vital Signs - 24 hr Temp Pulse Resp BP Pulse Ox 12/25/17 06:49 95 12/25/17 03:26 99 12/25/17 03:16 98.3 F 92 16 112/78 98 12/25/17 03:01 90 12/24/17 23:01 104 H 12/24/17 21:31 99 12/24/17 21:16 98.0 F 103 H 18 116/62 99 12/24/17 19:01 95 12/24/17 19:00 85 18 12/24/17 15:16 98.6 F 108 H 18 106/70 96 12/24/17 14:59 108 H 12/24/17 12:45 89 20 H 12/24/17 10:59 103 H 12/24/17 09:14 99.2 F H 100 18 106/66 98 Laboratory Tests Past 24 Hrs 12/24/17 12/25/17 12/25/17 12:00 04:20 05:53 WBC 10.4 RBC 2.53 L Hgb 8.1 L Hct 26.3 L MCV 104.0 H MCH 32.0 MCHC 30.8 L RDW 15.3 H RDW Differential 56.3 H Plt Count 160 MPV 10.5 Immature Gran % (Auto) 0.300 Neut % (Auto) 76.8 H Lymph % (Auto) 12.3 L [place] % (Auto) 10.0 Eos % (Auto) 0.5 Baso % (Auto) 0.1 Absolute Neuts (auto) 8.0 H Absolute Lymphs (auto) 1.27 Total Counted Not Reportable Sodium Potassium Chloride Carbon Dioxide Anion Gap BUN Creatinine Estim Creat Clear Calc Est GFR (MDRD) Af Amer Est GFR (MDRD) Non-Af BUN/Creatinine Ratio Glucose Calcium Urine Color Yellow Urine Clarity Clear Urine pH 5.0 Ur Specific [place] 1.015 Urine Protein 30 H Urine Glucose (UA) Normal Urine Ketones 5 H Urine Occult Blood 10 H Urine Nitrite Negative Urine Bilirubin 1 H Urine Urobilinogen Normal Ur Leukocyte Esterase 100 H Urine RBC 0 SEEN Urine WBC 0-5 SEEN Ur Squamous Epith Cells 0-5 SEEN Urine Bacteria 0 SEEN Hyaline Casts 0-5 SEEN Urine Mucus 0 SEEN MRSA (PCR) Negative 12/25/17 05:53 WBC RBC Hgb Hct MCV MCH MCHC RDW RDW Differential Plt Count MPV Immature Gran % (Auto) Neut % (Auto) Lymph % (Auto) [place] % (Auto) Eos % (Auto) Baso % (Auto) Absolute Neuts (auto) Absolute Lymphs (auto) Total Counted Sodium 143 Potassium 3.4 L Chloride 115 H Carbon Dioxide 19.0 L Anion Gap 9 BUN 7 Creatinine 0.69 Estim Creat Clear Calc 79.55 Est GFR (MDRD) Af Amer 114 Est GFR (MDRD) Non-Af 94 BUN/Creatinine Ratio 10.2 Glucose 83 Calcium 7.3 L Urine Color Urine Clarity Urine pH Ur Specific [place] Urine Protein Urine Glucose (UA) Urine Ketones Urine Occult Blood Urine Nitrite Urine Bilirubin Urine Urobilinogen Ur Leukocyte Esterase Urine RBC Urine WBC Ur Squamous Epith Cells Urine Bacteria Hyaline Casts Urine Mucus MRSA (PCR) Blood cultures - pending Assessment/Plan All Active Problems 57-year-old lady with metastatic small cell lung cancer refractory to chemotherapy treatment. She now present with sepsis/postobstructive pneumonia with bilateral pulmonary embolism as well as liver metastases, pancreatitis and ataxia possible secondary to progression disease versus generalized weakness. 1) postobstructive pneumonia/sepsis; agree with broad-spectrum antibiotic pending blood and sputum cultures -Pneumococcal antigens and legionnaire antigen urine test -Sputum culture 2) acute pulmonary embolus secondary to metastatic lung cancer -Continue Lovenox injection 1mg/kg sq 12-hour 3) chronic anemia secondary to iron deficiency and anemia of chronic disease -Continue observation since patient is asymptomatic. 4) history of pancreatitis, elevated lipase but patient asymptomatic -Manage symptomatically. 5) frequent fall and worsening debility-due to cancer progression, dehydration, malnutrition, paraneoplastic vs progression of cerebellar metastasis -PT / OT consult 6) progression of metastatic small cell lung cancer with brain and liver metastasis on palliative chemotherapy -Discontinue chemotherapy -Family conference to discuss hospice referral (later this morning). cc: Dr. Chanell Fox, Dr. Rajeev Presley, Dr. Yanni Martin
[2017-12-25] MEDS: 0.9% Normal Saline 1,000 ML 100 ML IV ×2 (09:18→20:05)
--- NOTE | 2017-12-25 09:35 | CASEMGMT ---
SW accompanied Dr Arvizu per his request to patient's room to talk with patient and her sister regarding Hospice. Family and patient understand that Hospice is appropriate at this time. After physician left SW spoke with patient and her sister regarding d/c plan. Patient cannot go home alone and there is no one to be with her and her sister's place is not big enough. Discussed fpc on pending Medicaid and Hospice. Patient's sister gave SW about 6 choices for SNF. She completed Medicaid application for patient. SW told them SW will make a referral to Hospice and they will call patient's sister to set up a time to meet. SW said SW will work on fpc referrals as well. ALANNA called Hospice and spoke with Prerna. SW told her the situation and they will call patient's sister to set up a time to meet. ALANNA called [facility] and made a referral. ALANNA also faxed Medicaid application to [facility]. Await response from Hospice, SW, and JFS. Tamie GARIBAY MSW
--- NOTE | 2017-12-25 10:42 | CASEMGMT ---
ALANNA spoke with Zabrina at [facility] and they will accept patient. ALANNA called Karma at [facility] and let her know that patient will be going to [facility]. She will call ALANNA with a pending number. ALANNA called patient's sister, Osiris and let her know [facility] will take patient. She said she is meeting with Hospice today at 3p. ALANNA received a call from Prerna at Hospice and she told SW they are meeting with patient and her sister at 3p today. SW let her know patient will be going to [facility] at d/c. ALANNA went to let patient know this information, but she was sleeping and ALANNA did not want to wake her. Plan: Pending receipt of pending Medicaid number and discussion with Hospice patient will be d/c to [facility]. Tamie GARIBAY MSW
--- NOTE | 2017-12-25 11:41 | CPS ---
Pt. refused use of PEP device, does not want to continue using acapella
[2017-12-25] MEDS: oxyCODONE 5 MG Tablet PO (14:49)
[2017-12-25 15:29] LABS: Pathologist Review Reviewed
--- NOTE | 2017-12-25 15:43 | PCM.PROGNOTE ---
<Guanako Plunkett - Last Filed: 12/25/17 15:43> Patient Problems: Active and Suspected Problems Pulmonary embolism (Acute) Pneumonia (Acute) Sepsis (Acute) Chest pain (Acute) Ataxia (Acute) Cerebellar metastases Subjective: Pt resting comfortably in bed. Agreeable to SNF/Hospice. Breathing stable. Somewhat wheezy. No CP. - Physical Exam General: Alert, Oriented x3, Cooperative HEENT: Atraumatic, PERRLA, EOMI, Normocephalic Neck: Supple, No JVD, Negative Carotid Bruits Lungs: Wheezes Cardiovascular: Regular rate, No murmurs Abdomen: Bowel Sounds Present, Soft, Non Tender Extremities: No edema, Capillary Refill Less than 3 Seconds Skin: No rashes, No breakdown Musculoskeletal: No Tenderness to Palpation of Joints or Extremities Neurological: Cranial nerves II-XII grossly intact Psych/Mental Status: Normal Affect, Appropriate Vital Signs Temp Pulse Resp BP Pulse Ox 98.0 F 112 H 18 115/76 95 12/25/17 09:15 12/25/17 14:26 12/25/17 13:08 12/25/17 09:15 12/25/17 09:15 Oxygen Flow Rate (L/min) 2 Oxygen Delivery Method Room Air Weight: 161 lb 7.994 oz Body Mass Index (BMI) 27.7 Intake and Output for Last 24 Hours 12/23/17 12/24/17 12/25/17 23:59 23:59 23:59 Intake Total 5949 / 5949 1962.7 / 1962.7 Output Total 150 / 150 Balance 5949 / 5949 1812.7 / 1812.7 Microbiology Past 72 Hours 12/25/17 04:20 Streptococcus pneumoniae Antigen (M - Final Urine, Clean Catch 12/25/17 04:20 Legionella Antigen - Final Urine, Clean Catch 12/23/17 14:25 Blood Culture - Preliminary Blood Culture (Wb) - Anticubital Right No growth in 48 hours. 12/23/17 14:14 Blood Culture - Preliminary Blood Culture (Wb) - Left Forearm No growth in 48 hours. Laboratory Tests Past 24 Hrs 12/23/17 12/25/17 12/25/17 14:23 04:20 05:53 WBC 10.4 RBC 2.53 L Hgb 8.1 L Hct 26.3 L MCV 104.0 H MCH 32.0 MCHC 30.8 L RDW 15.3 H RDW Differential 56.3 H Plt Count 160 MPV 10.5 Immature Gran % (Auto) 0.300 Neut % (Auto) 76.8 H Lymph % (Auto) 12.3 L [place] % (Auto) 10.0 Eos % (Auto) 0.5 Baso % (Auto) 0.1 Absolute Neuts (auto) 8.0 H Absolute Lymphs (auto) 1.27 Total Counted Not Reportable Diff Path Review Reviewed Sodium Potassium Chloride Carbon Dioxide Anion Gap BUN Creatinine Estim Creat Clear Calc Est GFR (MDRD) Af Amer Est GFR (MDRD) Non-Af BUN/Creatinine Ratio Glucose Calcium Urine Color Yellow Urine Clarity Clear Urine pH 5.0 Ur Specific [place] 1.015 Urine Protein 30 H Urine Glucose (UA) Normal Urine Ketones 5 H Urine Occult Blood 10 H Urine Nitrite Negative Urine Bilirubin 1 H Urine Urobilinogen Normal Ur Leukocyte Esterase 100 H Urine RBC 0 SEEN Urine WBC 0-5 SEEN Ur Squamous Epith Cells 0-5 SEEN Urine Bacteria 0 SEEN Hyaline Casts 0-5 SEEN Urine Mucus 0 SEEN 12/25/17 05:53 WBC RBC Hgb Hct MCV MCH MCHC RDW RDW Differential Plt Count MPV Immature Gran % (Auto) Neut % (Auto) Lymph % (Auto) [place] % (Auto) Eos % (Auto) Baso % (Auto) Absolute Neuts (auto) Absolute Lymphs (auto) Total Counted Diff Path Review Sodium 143 Potassium 3.4 L Chloride 115 H Carbon Dioxide 19.0 L Anion Gap 9 BUN 7 Creatinine 0.69 Estim Creat Clear Calc 79.55 Est GFR (MDRD) Af Amer 114 Est GFR (MDRD) Non-Af 94 BUN/Creatinine Ratio 10.2 Glucose 83 Calcium 7.3 L Urine Color Urine Clarity Urine pH Ur Specific [place] Urine Protein Urine Glucose (UA) Urine Ketones Urine Occult Blood Urine Nitrite Urine Bilirubin Urine Urobilinogen Ur Leukocyte Esterase Urine RBC Urine WBC Ur Squamous Epith Cells Urine Bacteria Hyaline Casts Urine Mucus Medical Necessity - Tobacco Use Smoking Status: Current every day smoker Tobacco Use: Cigarettes Assessment/Plan All Active Problems Pulmonary embolism (Acute) Pneumonia (Acute) Sepsis (Acute) Chest pain (Acute) Ataxia (Acute) Acute pancreatitis (Acute) Ureteral calculus (Acute) Hydronephrosis due to obstruction of ureter (Acute) 1. Acute PE's - 2/2 metastatic cancer, also on megace (held), and smoker. Continue therapeutic lovenox. Oncology consulted. echo Echo demonstrates EF of 65% with stage I diastolic dysfunction, RVSP of 37 mmHg, mild pulmonary hypertension. Trop neg. 2. Presumed acute severe sepsis 2/2 postobstructive pna - respiratory symptoms are mild and possibly all 2/2 PE, however CTA does show post obstructive atelectasis vs pna. Severe sepsis criteria met on admission with leukocytosis, tachypnea, tachycardia, lactic acidosis. Vanc and aztreonam stopped and changed to cefepime. MRSA screen is negative. Leukocytosis is improved, she remains afebrile. Blood cultures, sputum cultures, urine antigens pending. Blood cx negative x2. 3. 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 Last chemo 3 weeks ago. Liver enzymes are elavated. T bili normal. Luh/ALANNA discussed hospice with pt and she is agreeable. 4. Chronic Iron def anemia - continue Iron. 5. Hx pancreatitis - elevated lipase however no abdominal / GI complaints - I do not feel this is acute pancreatitis and will allow her to have regular diet for now. 6. Fall with worsening debility - CT brain neg for acute change. X-ray of the knee does not show a fracture. Pt unsafe to go home on her own. 7. Nicotine abuse - gum per patient request. She continues to smoke at least one pack a day. DVT ppx: therapeutic lovenox for PE DC planning: To SNF on Hospice when ok per NGUYỄN/SW team. This patient was seen by Guanako Plunkett PA-C under the supervision of Doctor Quintero. <Mainor Quintero - Last Filed: 12/25/17 16:56> Subjective: Patient was seen and examined. Mild chest pain and nonproductive cough. No obvious shortness of breath. Discussed with Dr. Madden, the oncologist in the morning today. Family meeting today for further palliative care about 1 PM. Agreeable for hospice care - Physical Exam General: Alert, Oriented x3, Cooperative HEENT: Atraumatic, PERRLA, EOMI, Normocephalic Neck: Supple, No JVD, Negative Carotid Bruits Lungs: Diminished, Rales - Coarse rales present, Rhonchi, Wheezes Cardiovascular: Regular rate, Regular Rhythm, Normal S1, Normal S2, No murmurs Abdomen: Bowel Sounds Present, Soft, Non Tender, Non-Distended Extremities: No edema, Capillary Refill Less than 3 Seconds Skin: No rashes, No breakdown Musculoskeletal: No Tenderness to Palpation of Joints or Extremities, Arthritic Changes, Muscle Wasting Neurological: Cranial nerves II-XII grossly intact, Neuro grossly intact Psych/Mental Status: Normal Affect, Appropriate Vital Signs Temp Pulse Resp BP Pulse Ox 98.3 F 98 16 117/76 98 12/25/17 15:15 12/25/17 15:15 12/25/17 15:15 12/25/17 15:15 12/25/17 15:15 Oxygen Flow Rate (L/min) 2 Oxygen Delivery Method Room Air Weight: 161 lb 7.994 oz Body Mass Index (BMI) 27.7 Intake and Output for Last 24 Hours 12/23/17 12/24/17 12/25/17 23:59 23:59 23:59 Intake Total 5949 / 5949 1962.7 / 1962.7 Output Total 150 / 150 Balance 5949 / 5949 1812.7 / 1812.7 Microbiology Past 72 Hours 12/25/17 04:20 Streptococcus pneumoniae Antigen (M - Final Urine, Clean Catch 12/25/17 04:20 Legionella Antigen - Final Urine, Clean Catch 12/23/17 14:25 Blood Culture - Preliminary Blood Culture (Wb) - Anticubital Right No growth in 48 hours. 12/23/17 14:14 Blood Culture - Preliminary Blood Culture (Wb) - Left Forearm No growth in 48 hours. Laboratory Tests Past 24 Hrs 12/23/17 12/25/17 12/25/17 14:23 04:20 05:53 WBC 10.4 RBC 2.53 L Hgb 8.1 L Hct 26.3 L MCV 104.0 H MCH 32.0 MCHC 30.8 L RDW 15.3 H RDW Differential 56.3 H Plt Count 160 MPV 10.5 Immature Gran % (Auto) 0.300 Neut % (Auto) 76.8 H Lymph % (Auto) 12.3 L [place] % (Auto) 10.0 Eos % (Auto) 0.5 Baso % (Auto) 0.1 Absolute Neuts (auto) 8.0 H Absolute Lymphs (auto) 1.27 Total Counted Not Reportable Diff Path Review Reviewed Sodium Potassium Chloride Carbon Dioxide Anion Gap BUN Creatinine Estim Creat Clear Calc Est GFR (MDRD) Af Amer Est GFR (MDRD) Non-Af BUN/Creatinine Ratio Glucose Calcium Phosphorus Magnesium Urine Color Yellow Urine Clarity Clear Urine pH 5.0 Ur Specific [place] 1.015 Urine Protein 30 H Urine Glucose (UA) Normal Urine Ketones 5 H Urine Occult Blood 10 H Urine Nitrite Negative Urine Bilirubin 1 H Urine Urobilinogen Normal Ur Leukocyte Esterase 100 H Urine RBC 0 SEEN Urine WBC 0-5 SEEN Ur Squamous Epith Cells 0-5 SEEN Urine Bacteria 0 SEEN Hyaline Casts 0-5 SEEN Urine Mucus 0 SEEN 12/25/17 12/25/17 12/25/17 05:53 05:53 05:53 WBC RBC Hgb Hct MCV MCH MCHC RDW RDW Differential Plt Count MPV Immature Gran % (Auto) Neut % (Auto) Lymph % (Auto) [place] % (Auto) Eos % (Auto) Baso % (Auto) Absolute Neuts (auto) Absolute Lymphs (auto) Total Counted Diff Path Review Sodium 143 Potassium 3.4 L Chloride 115 H Carbon Dioxide 19.0 L Anion Gap 9 BUN 7 Creatinine 0.69 Estim Creat Clear Calc 79.55 Est GFR (MDRD) Af Amer 114 Est GFR (MDRD) Non-Af 94 BUN/Creatinine Ratio 10.2 Glucose 83 Calcium 7.3 L Phosphorus 1.5 L Magnesium 1.3 L Urine Color Urine Clarity Urine pH Ur Specific [place] Urine Protein Urine Glucose (UA) Urine Ketones Urine Occult Blood Urine Nitrite Urine Bilirubin Urine Urobilinogen Ur Leukocyte Esterase Urine RBC Urine WBC Ur Squamous Epith Cells Urine Bacteria Hyaline Casts Urine Mucus Assessment/Plan This patient was seen in conjunction with Guanako KAUFMAN. I have independently interviewed and examined the patient and reviewed pertinent history, examination findings, laboratory and plan of management. I have reviewed the note and agree with the documented findings with the few additional points. In brief, patient is a 57-year-old female with history of 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 Presley, last chemo about 3 weeks ago is being admitted for generalized weakness, difficulty walking and recurrent fall at home. Patient fell down and states hit her head. She has persistent cough clear sputum and bilateral pleuritic chest wall pain and further assessment and evaluation was consistent with moderately extensive bilateral acute PE secondary to metastatic cancer, right middle lobe postobstructive pneumonia/atelectasis and right hilar, mediastinal mass, adrenal metastasis and diffuse liver metastasis. CT images reviewed. The patient was started on IV vancomycin and aztreonam and Lovenox 1 mg/kg body weight subcut q12hr. IV antibiotic was changed to cefepime and vancomycin. Patient does not have significant allergy with cephalosporins. On bronchodilator and guaifenesin. Family meeting today for hospice and further planning after the meeting I have discussed my assessment with Guanako KAUFMAN and orders have been reviewed. Code Visit Inpatient E&M: 62027 Subs Hosp L3
--- NOTE | 2017-12-25 16:02 | CASEMGMT ---
Hospice spoke with patient and family. Hospice orders were signed. Patient will go to [facility] tomorrow on Hospice. SW spoke with family and let them know this information. They will transport patient. They asked patient's room number at [facility] so they could put her television in it. SW called [facility] and patient will go to [facility]. SW gave this to patient's family. SW called Zabrina at [facility] and let her know patient will come tomorrow. Plan: [facility] on Hospice Tamie ARIAS
[2017-12-25 16:08] LABS: Magnesium 1.3 mg/dL (1.6-2.6)
[2017-12-25 16:14] LABS: Phosphorus 1.5 mg/dL (2.5-4.9)
[2017-12-25] MEDS: Na Biphos/Potassium Phosphate PACKET 1 PACKET PO ×2 (17:35→22:21)
[2017-12-26] VITALS (10 sets, daily range): BP systolic 126–132; BP diastolic 80–84; PULSE 91–104; RESP 16–22; TEMP 36.6–37; O2SAT 92–97
[2017-12-26] MEDS: Ipratropium/Albuterol Sulfate 3 ML AMPUL.NEB INHALATION ×2 (00:13→06:51)
[2017-12-26] MEDS: 0.9% Normal Saline 1,000 ML 100 ML IV (05:58)
[2017-12-26] MEDS: Na Biphos/Potassium Phosphate PACKET 1 PACKET PO (05:59)
[2017-12-26] MEDS: Enoxaparin 80 MG/0.8 ML Syringe SC (05:59)
[2017-12-26 06:44] LABS: Absolute Lymphocyte Count 1.17 X10^3/ul (0.83-4.51); Absolute Neutrophil Count 7.5 X10^3/uL (2.0-7.7); Basophil# 0.02 X10^3/uL; Basophil% 0.2 % (0-1); Eosinophil# 0.04 X10^3/uL; Eosinophils% 0.4 % (0-5); Hematocrit 27.3 % (37-47); Hemoglobin 8.5 g/dl (12.0-15.0); Lymphocyte # 1.17 X10^3/ul (4.0); Lymphocyte % 12.1 % (19-41); Mean Corp Hgb Conc 31.1 g/gl (32-36); Mean Corpuscular Volume 102.6 fL (81-99); Mean Platelet Vol. 9.4 fl (6.2-12.0); Monocyte# 0.93 X10^3/uL; Monocyte% 9.6 % (0-10); Neutrophil # 7.52 X10^3/uL (2.7-7.7); Neutrophil % 77.5 % (47-70); Platelet Count 166 K/mm3 (150-450); RBC Distribution Width CV 15.7 % (11.6-14.6); Red Blood Count 2.66 M/mm3 (4.2-5.4); White Blood Count 9.7 K/mm3 (4.4-11.0)
[2017-12-26 06:59] LABS: POSITIVE COUNT NO; POSITIVE DIFFERENTIAL NO; POSITIVE MORPHOLOGY NO
[2017-12-26 07:13] LABS: Anion Gap 13 (5-15); BUN 5 mg/dL (7-18); BUN/Creat Ratio 9.5 RATIO (10-20); Calcium,Total 7.6 mg/dL (8.5-10.1); Chloride 115 mmol/L (98-107); Creatinine, Serum 0.53 mg/dL (0.55-1.02); EST Glomerular Filtration Rate 128 mL/min (>60); Est Glom Filt Rate - Afr Amer 155 mL/min (>60); Estimated Creatinine Clearance 103.57 ml/min; Glucose 74 mg/dL (74-106); Sodium Level 142 mmol/L (136-145)
[2017-12-26] MEDS: Ferrous Sulfate 325 MG Tablet PO (08:57)
[2017-12-26] MEDS: Pantoprazole Sodium 20 MG Tablet PO (08:59)
[2017-12-26] MEDS: guaiFENesin 1,200 MG Tablet 1200 MG PO (08:59)
[2017-12-26] MEDS: Acetaminophen 325 MG Tablet 650 MG PO (09:07)
--- NOTE | 2017-12-26 10:43 | PCM.TXEXTCAR ---
- Diet 12/23/17 17:52 Diet: Regular Diet - Routine Orders/Code Status Enema Type: Fleetz Enema Frequency: Daily PRN Suppository Type: Dulcolax 10mg Suppository Frequency: Daily PRN Code Status[facility] - [facility] care - Therapies Weight Bearing: Weight bearing as tolerated Physical Therapy: Eval and Treat Occupational Therapy: Eval and Treat Speech Therapy: Eval and Treat - Allergies/Procedures Done in Hospital Allergies/Adverse Reactions: Allergies cephalexin Allergy (Verified 12/23/17 13:27) Unknown lidocaine Allergy (Verified 12/23/17 13:27) Rash Penicillins Allergy (Verified 12/23/17 13:27) Rash - Type of Care/Length of Stay Estimated LOS: Convalescent Care Less Than 30 days Type of Care Needed: Intermediate Rehab Potential: Fair Prognosis: Fair - Additional Orders/Day of Discharge Additional Orders: inpatient [facility] care Day of Discharge: 12/26/17 - Dietary and Speech Recommendations Dietitian Recommendations/Changes: Pt does not like Ensure Enlive so will d/c. Will be giving Magic cup (290 jennifer, 9 gm protein) at lunch and Ensure Pudding (170 jennifer, 4 gm protein) at dinner to provide an extra 460 calories and 13 gm protein per day. - Follow Up Care Primary Care Physician: Yanni Martin MD [Primary Care Provider] - Please follow up with your Primary Care Physician in: in 2 weeks
--- NOTE | 2017-12-26 10:46 | PCM.DC.SUM ---
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 Presley, last chemo about 3 weeks ago is being admitted for generalized weakness, difficulty walking and recurrent fall at home. Patient fell down and states hit her head. She has persistent cough clear sputum and bilateral pleuritic chest wall pain and further assessment and evaluation was consistent with moderately extensive bilateral acute PE secondary to metastatic cancer, right middle lobe postobstructive pneumonia/atelectasis and right hilar, mediastinal mass, adrenal metastasis and diffuse liver metastasis. CT images reviewed. The patient was started on IV vancomycin and aztreonam and Lovenox 1 mg/kg body weight subcut q12hr. IV antibiotic was changed to cefepime and vancomycin. Patient does not have significant allergy with cephalosporins. On bronchodilator and guaifenesin. Later on family meeting was done with palliative care, family member and Dr. Madden. The patient agreed with inpatient hospice care at a [facility]. Patient is being discharged under inpatient hospice care. Discharge medication reconciliation done. Follow-up instructions completed. Patient is discharged on Levaquin 500 mg daily for presumed postobstructive pneumonia and right middle lobe. Pain medication as per hospice care. Breathing treatments/nebulization to continue for palliative purposes Patient detailed hospital course, diagnosis and management and recommendations as follows: 1. Acute moderately extensive bilateral pulmonary embolism secondary to- metastatic small cell lung cancer, also on megace (held), and smoker. Continue therapeutic lovenox. Oncology consulted and reviewed. Echo demonstrates EF of 65% with stage I diastolic dysfunction, RVSP of 37 mmHg, mild pulmonary hypertension. Trop neg. 2. Presumed acute severe sepsis secondary to postobstructive right middle lobe pneumonia/atelectasis: Present on admission-Severe sepsis criteria met on admission with leukocytosis, tachypnea, tachycardia, lactic acidosis. Vanc and aztreonam stopped and changed to cefepime. MRSA screen is negative. Leukocytosis is improved, she remains afebrile. Blood cultures, sputum cultures, urine antigens pending. Blood cx negative x2. 3. 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 Last chemo 3 weeks ago. Liver enzymes are elavated. T bili normal. Luh/ALANNA discussed hospice with pt and she is agreeable. 4. Chronic Iron def anemia - continue Iron. 5. Hx pancreatitis - elevated lipase however no abdominal / GI complaints - I do not feel this is acute pancreatitis and will allow her to have regular diet for now. 6. Fall with worsening debility - CT brain neg for acute change. X-ray of the knee does not show a fracture. Pt unsafe to go home on her own. 7. Nicotine abuse - gum per patient request. She continues to smoke at least one pack a day when though she knows she has metastatic lung cancer. Total time spent, exact 35 minutes on discharge meds reconciliation, examination, review of imaging and blood test and discussion with the patient on follow-up instructions. Subjective: Patient was seen and examined today. Patient is agreed for inpatient hospice care. Currently patient does not look short of breath at rest. No wheezing. No chest pain. Laying on the bed. Objective: General: Alert, Oriented x3, Cooperative, moderate protein calorie malnutrition with muscle atrophy in extremities HEENT: Atraumatic, PERRLA, EOMI, Normocephalic Neck: Supple, No JVD, Negative Carotid Bruits Lungs: Bilateral expiratory rhonchi, Wheezes; air entry diminished diffuse in both lungs. Cardiovascular: Regular rate, Regular Rhythm, Normal S1, Normal S2, No murmurs Abdomen: Bowel Sounds Present, Soft, Non Tender, Non-Distended Extremities: No edema, Capillary Refill Less than 3 Seconds Skin: No rashes, No breakdown Musculoskeletal: No Tenderness to Palpation of Joints or Extremities, Arthritic Changes, Muscle Wasting Neurological: Cranial nerves II-XII grossly intact, Neuro grossly intact Psych/Mental Status: Normal Affect, Appropriate - Physical Exam Vital Signs Temp Pulse Resp BP Pulse Ox 98.6 F 101 H 16 128/80 H 96 12/26/17 09:10 12/26/17 09:10 12/26/17 09:10 12/26/17 09:10 12/26/17 09:10 Oxygen Flow Rate (L/min) 2 Oxygen Delivery Method Room Air Weight: 161 lb 7.994 oz Body Mass Index (BMI) 27.7 Intake and Output for Last 24 Hours 12/24/17 12/25/17 12/26/17 23:59 23:59 23:59 Intake Total 5949 / 5949 4275.7 / 4275.7 950 / 950 Output Total 250 / 250 Balance 5949 / 5949 4025.7 / 4025.7 950 / 950 Microbiology Past 72 Hours 12/25/17 04:20 Streptococcus pneumoniae Antigen (M - Final Urine, Clean Catch 12/25/17 04:20 Legionella Antigen - Final Urine, Clean Catch 12/23/17 14:25 Blood Culture - Preliminary Blood Culture (Wb) - Anticubital Right No growth in 48 hours. 12/23/17 14:14 Blood Culture - Preliminary Blood Culture (Wb) - Left Forearm No growth in 48 hours. Laboratory Tests Past 24 Hrs 12/23/17 12/25/17 12/25/17 14:23 05:53 05:53 WBC RBC Hgb Hct MCV MCH MCHC RDW RDW Differential Plt Count MPV Immature Gran % (Auto) Neut % (Auto) Lymph % (Auto) [place] % (Auto) Eos % (Auto) Baso % (Auto) Absolute Neuts (auto) Absolute Lymphs (auto) Total Counted Diff Path Review Reviewed Sodium Potassium Chloride Carbon Dioxide Anion Gap BUN Creatinine Estim Creat Clear Calc Est GFR (MDRD) Af Amer Est GFR (MDRD) Non-Af BUN/Creatinine Ratio Glucose Calcium Phosphorus 1.5 L Magnesium 1.3 L 12/26/17 12/26/17 06:05 06:05 WBC 9.7 RBC 2.66 L Hgb 8.5 L Hct 27.3 L MCV 102.6 H MCH 32.0 MCHC 31.1 L RDW 15.7 H RDW Differential 59.0 H Plt Count 166 MPV 9.4 Immature Gran % (Auto) 0.200 Neut % (Auto) 77.5 H Lymph % (Auto) 12.1 L [place] % (Auto) 9.6 Eos % (Auto) 0.4 Baso % (Auto) 0.2 Absolute Neuts (auto) 7.5 Absolute Lymphs (auto) 1.17 Total Counted Not Reportable Diff Path Review Sodium 142 Potassium 4.0 Chloride 115 H Carbon Dioxide 14.0 L Anion Gap 13 BUN 5 L Creatinine 0.53 L Estim Creat Clear Calc 103.57 Est GFR (MDRD) Af Amer 155 Est GFR (MDRD) Non-Af 128 BUN/Creatinine Ratio 9.5 L Glucose 74 Calcium 7.6 L Phosphorus Magnesium Home Medications: Medications to take at Discharge Ferrous Sulfate [Iron] 325 mg PO BID 10/14/17 Metoclopramide HCl 20 mg PO Q6H PRN 10/14/17 Omeprazole 20 mg PO DAILY 10/14/17 Potassium Chloride [K-Tab ER] 20 meq PO DAILY 10/14/17 Albuterol Sulfate [Ventolin Hfa] 2 puff INHALATION Q4H PRN PRN 12/23/17 Megestrol Acetate [Megace Suspension] 400 mg PO DAILY 12/23/17 Oxycodone [Oxyir] 10 - 20 mg PO Q6H PRN PRN 12/23/17 Acetaminophen [Tylenol Tablet] 650 mg PO Q6H PRN PRN tablet 12/26/17 Albuterol Aerosols [Ventolin Aerosols] 2.5 mg INHALATION Q2H PRN PRN vial.neb. 12/26/17 Enoxaparin [Lovenox] 80 mg SC Q12@0600,1800 syringe 12/26/17 Guaifenesin [Mucinex] 1,200 mg PO BID #14 tablet 12/26/17 Ipratropium/Albuterol Sulfate [Duoneb] 3 ml INHALATION Q6HWA.RT ampul.neb 12/26/17 Levofloxacin [Levaquin] 500 mg PO DAILY #5 tab 12/26/17 Na Biphos/Potassium Phosphate [Neutra-Phos Packet] 1 packet PO TID #6 packet 12/26/17 Nicotine Polacrilex [Nicotine Gum] 4 mg PO Q2H PRN PRN gum 12/26/17 Following Prescrptions Were Given to Patient: Levofloxacin [Levaquin] 500 mg PO DAILY #5 tab Primary Care Physician: Yanni Martin MD [Primary Care Provider] - Please follow up with your Primary Care Physician in: in 2 weeks Medical Necessity - Tobacco Use Smoking Status: Current every day smoker Tobacco Use: Cigarettes Meaningful Use Info Meaningful Use Diagnoses (Choose all that apply): None applicable Code Visit Inpatient E&M: 08691 Disch Hosp
--- NOTE | 2017-12-26 11:00 | NURSING ---
[facility] and Prema [facility]R at [facility]
--- NOTE | 2017-12-26 11:14 | CASEMGMT ---
Addendum entered by Tamie Posadas 12/26/17 11:50: ALANNA called Hospice and let Prerna know patient left the hospital and is in route to [facility]. Tamie ARISA Original Note: Faxed orders to Hospice and [facility]. 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 SW notified patient, RN, Prema at Hospice, Zabrina at [facility], and escrow secretary. Plan: d/c to [facility] under Hospice and pending Medicaid. Pending Medicaid number is: [id number] Tamie ARIAS
[2017-12-26 13:23] LABS: Pathologist Review Reviewed
== END 2017-12-26 11:49 | disposition hospice, inpatient (51) | DRG 871 ==
LOC: ED 17:02 → PCU 17:43
PROVIDERS: Internal Medicine Hematology & Oncology; Physician Assistant; Admitting Provider Student in an Organized Health Care Education/Training Program; Emergency Provider Emergency Medicine; Family Provider Internal Medicine; PCP Internal Medicine; Visit Provider Internal Medicine
DX: A41.9 Sepsis, unspecified organism (principal); I26.99 Other pulmonary embolism without acute cor pulmonale; J18.9 Pneumonia, unspecified organism; C34.90 Malignant neoplasm of unspecified part of unspecified bronchus or lung; C78.7 Secondary malignant neoplasm of liver and intrahepatic bile duct; C79.31 Secondary malignant neoplasm of brain; C78.89 Secondary malignant neoplasm of other digestive organs; C79.70 Secondary malignant neoplasm of unspecified adrenal gland; E44.0 Moderate protein-calorie malnutrition; R65.20 Severe sepsis without septic shock; Z23 Encounter for immunization; Z68.27 Body mass index [BMI] 27.0-27.9, adult; D50.9 Iron deficiency anemia, unspecified; Z51.5 Encounter for palliative care; F17.210 Nicotine dependence, cigarettes, uncomplicated; R53.81 Other malaise; Z92.3 Personal history of irradiation; R29.6 Repeated falls; I27.20 Pulmonary hypertension, unspecified; R27.0 Ataxia, unspecified
CPT/HCPCS: 36415; 70450; 71275; 73560; 80048; 80053; 81001; 83605; 83690; 83735; 84100; 84484; 85025; 85610; 85730; 87040; 87086; 87449; 87641; 93005; 93306; 94640; 94667; 94668; 97161; 97166; 97802; 99285; 99406; J7030; J7040; J7050; Q9967; 90686; A4216